=== PATIENT | male | born 1955 | race Caucasian/White ===

== ENCOUNTER 2022-12-24 18:52 | Inpatient (IN) ==
--- NOTE | 2022-12-24 19:14 | Emergency Department Note ---
History of Present Illness General Chief complaint: Shortness of Breath/Dyspnea Time Seen by Provider: 12/24/22 18:54 History of Present Illness 67-year-old male presents emergency department complaint of shortness of breath that been ongoing since April. Patient recently was at [facility] for shortness of breath. He is a very poor historian he called hussain for trasnport as he states he was short of breath. Patient states he hyperventilates at times. Patient denies any cough cold congestion denies chest pain. Patient was told that he has blockages in the past but he does not state specifically where those blockages are in fact. Patient denies a fever. There are no other mitigating or alleviating factors Home Medications Medication Instructions Recorded Confirmed Type No Known Home Medications 12/24/22 12/24/22 History Allergies Allergy/AdvReac Type Severity Reaction Status Date / Time No Known Allergies Allergy Unverified 12/24/22 19:45 Past Med/Surg History Social History Smoking Status: Current every day smoker Tobacco Type: Cigarettes Feels Safe at Home: Yes Immunizations: Past medical history includes cardiac history Review of Systems A total of 10 systems reviewed and were otherwise negative Respiratory: + dyspnea Physical Exam Vital Signs Vital Signs - 24 hr 12/24/22 18:55 12/24/22 18:59 12/24/22 19:10 Temperature 36.8 C Temperature Source Oral Pulse Rate 99 H 98 H Respiratory Rate 22 Respiratory Effort / Characteristics Non-Labored Respiratory Depth Normal Normal Respiratory Pattern Regular Blood Pressure 134/92 Blood Pressure Mean 106 Pulse Oximetry 99 Oxygen Delivery Method Room Air Sepsis Recent Fever Within 48 Hours No Sepsis New/Unexplained Change in Mental Status No Sepsis Action Taken by Nursing No Action Required 12/24/22 19:13 12/24/22 19:15 Temperature Temperature Source Pulse Rate 92 H Respiratory Rate 18 Respiratory Effort / Characteristics Respiratory Depth Respiratory Pattern Blood Pressure Blood Pressure Mean Pulse Oximetry 100 100 Oxygen Delivery Method Room Air Sepsis Recent Fever Within 48 Hours Sepsis New/Unexplained Change in Mental Status Sepsis Action Taken by Nursing GENERAL: Patient is awake alert in no acute distress patient is resting co mfortably and showing no signs of anxiety EYES: The conjunctivae are clear. The pupils are round and reactive. EARS, NOSE, MOUTH AND THROAT: The nose is without any evidence of any deformity. Mucous membranes are moist. Tongue is midline. NECK: The neck is nontender and supple. RESPIRATORY: Normal respiratory effort is noted there is no evidence of wheezing rhonchi or rales CARDIOVASCULAR: Regular rate and rhythm noted there no murmurs rubs or gallops normal S1 normal S2. GASTROINTESTINAL: The abdomen is soft. Abdomen is nontender. BACK: No midline tenderness or or step-off noted range of motion in flexion extension as well as rotation no signs of muscle spasm noted MUSCULOSKELETAL/EXTREMITIES: There is no evidence of gross deformity full range of motion is noted in the hips and shoulders. SKIN: There is no obvious evidence of any rash. There are no petechiae, pallor or cyanosis noted. NEUROLOGIC: Patient is awake alert and oriented x3 strength is symmetric Course Reevaluation(s) Reevaluation #1: Patient is resting in no distress on repeat examination. Patient has no current chest pain not short of breath. Time: 20:37 Consultations Consultation #1: [facility] Time: 20:37 Medical Decision Making Medical Records Attestation: I reviewed the patient's medical records. Home Medications Current Medication List: was personally reviewed by me Laboratory Data Attestation: I reviewed the patient's lab results. Patient has an elevated BNP and an elevated troponin 12/24/22 19:00 12/24/22 19:00 Lab Results 12/24/22 12/24/22 12/24/22 Range/Units 19:00 19:00 19:00 WBC 10.20 (4.8-10.8) K/ul RBC 5.69 (4.70-6.10) M/uL Hgb 17.2 (14.0-18.0) g/dl Hct 51.4 (42.0-52.0) % MCV 90.3 (80.0-100.0) fL MCH 30.2 (25.0-34.0) pg MCHC 33.5 (32.0-36.0) g/dL RDW Std Deviation 52.9 H (36.4-46.3) fL RDW Coeff of Samia 17.1 H (11.5-14.5) % Plt Count 113 L (130-400) K/uL MPV 12.0 (9.4-12.4) fL Immature Gran % (Auto) 0.4 % Neut % (Auto) 81.0 % Lymph % (Auto) 9.8 % [place] % (Auto) 8.7 % Eos % (Auto) 0.0 % Baso % (Auto) 0.1 % Neut # (Auto) 8.26 H (1.40-6.50) K/uL Lymph # (Auto) 1.00 L (1.2-3.4) K/uL [place] # (Auto) 0.89 H (0.11-0.59) K/uL Eos # (Auto) 0.00 (0-0.50) K/uL Baso # (Auto) 0.01 (0-0.2) K/uL Immature Gran # (Auto) 0.04 (0.01-0.20) K/uL Sodium 137 (136-145) mmol/L Potassium 4.9 (3.5-5.1) mmol/L Chloride 105 (98-107) mmol/L Carbon Dioxide 21 (21-32) mmol/L Anion Gap 11 (3-11) BUN 38 H (6-23) mg/dl Creatinine 1.14 (0.6-1.4) mg/dl Est Cr Clr Drug Dosing 75.1 ml/min Est GFR ( Amer) 77.8 ml/min Est GFR (Non-Af Amer) 67.1 ml/min BUN/Creatinine Ratio 33.3 H (10-20) Glucose 95 (70-99(Fasting)) mg/dl Calcium 9.0 (8.6-10.3) mg/dl Total Bilirubin 3.8 H (0.2-1.0) mg/dl AST 96 H (13-39) U/L ALT 213 H (7-52) U/L Alkaline Phosphatase 76 (34-104) U/L Troponin I High Sens 100.2 H* (0-20) pg/ml B-Natriuretic Peptide 3414 H (0-100) pg/ml Total Protein 6.5 (6.0-8.3) gm/dl Albumin 3.8 (3.4-5.0) gm/dl Globulin 2.7 (2.5-4.0) gm/dl Albumin/Globulin Ratio 1.4 (0.9-2) Lipase 56 (11-82) U/L Imaging Data Attestation: I personally reviewed and interpreted this imaging study as follows: My Impression: Chest x-ray interpreted by me cardiomegaly Radiologist's Impression: Chest X-Ray 12/24/22 18:58 XR chest 1V portable CLINICAL HISTORY: Chest pain, nonspecific TECHNIQUE: Single frontal radiograph of the chest was obtained. Comparison: None available at the time of this dictation. FINDINGS: No lines and tubes are seen. Cardiomegaly is noted. The lungs are clear. No evidence of pleural effusion or pneumothorax. IMPRESSION: No acute chest disease. ACT 112: Negative or not required by law. Electronically signed by: Dickson Carrero M.D. 12/24/2022 8:26 PM ECG Data Attestation: I personally reviewed and interpreted this ECG as follows: Additional Comments: EKG interpreted by me normal sinus rhythm left ventricular hypertrophy nons pecific T wave abnormality with T wave inversions laterally no obvious ST segment elevation or depression, rate is 100 Telemetry was ordered by me, interpreted as normal sinus rhythm rate of 99 MDM Narrative Medical decision making differential diagnosis includes CHF, anxiety, cardiac event, electrolyte abnormality, cardiac dysrhythmia, pneumonia, COPD Plan is to check labs, EKG, chest x-ray Bedside report was given to me by the HUSSAIN hogshead mat inspector Patient's heart score is a 4 Patient will be admitted for an elevated BNP and troponin he has no current chest pain, started on aspirin and Lasix. Do not suspect the patient have thoracic aortic dissection or pulmonary embolism at this time Impression & Plan CHF (congestive heart failure), Elevated troponin Discharge Plan Visit Data Chief Complaint: Shortness of Breath/Dyspnea ED Provider: Martir Salgado Discharge Problem: CHF (congestive heart failure), Elevated troponin Patient Disposition: Admitted As Inpatient Forms Stand Alone Forms: My [facility] [employer] Prescriptions Prescriptions: No Action No Known Home Medications Referrals Referrals: Jason Sapp MD [Primary Care Provider] -
[2022-12-24 19:17] LABS: Basophils # (auto) 0.01 K/uL (0-0.2); Basophils % (auto) 0.1 %; Hematocrit (blood only) 51.4 % (42.0-52.0); Hemoglobin 17.2 g/dl (14.0-18.0); Immature Granulocytes # (auto) 0.04 K/uL (0.01-0.20); Immature Granulocytes % (auto) 0.4 %; Lymphocytes % (auto) 9.8 %; Mean Corpuscular Hemoglobin 30.2 pg (25.0-34.0); Mean Corpuscular Hgb Conc 33.5 g/dL (32.0-36.0); Mean Corpuscular Volume 90.3 fL (80.0-100.0); Monocytes # (auto) 0.89 K/uL (0.11-0.59); Monocytes % (auto) 8.7 %; Neutrophils # (auto) 8.26 K/uL (1.40-6.50); Platelet Count 113 K/uL (130-400); RDW Coefficient of Variation 17.1 % (11.5-14.5); RDW Standard Deviation 52.9 fL (36.4-46.3); Red Blood Count 5.69 M/uL (4.70-6.10)
[2022-12-24 19:34] LABS: Albumin Globulin Ratio 1.4 (0.9-2); Albumin Level 3.8 gm/dl (3.4-5.0); BUN Creatinine Ratio 33.3 (10-20); Bilirubin,Total 3.8 mg/dl (0.2-1.0); Creatinine Clr Calc Pharmacy 75.1 ml/min; Est GFR (African American) 77.8 ml/min; Est GFR (Non-African American) 67.1 ml/min; Globulin 2.7 gm/dl (2.5-4.0); Potassium 4.9 mmol/L (3.5-5.1); Total Protein 6.5 gm/dl (6.0-8.3)
[2022-12-24] MEDS ORDERED: FUROSEMIDE 40 MG/4 ML VIAL IV ONE (19:45)
[2022-12-24] MEDS ORDERED: ASPIRIN CHEW 324 MG PO STA (19:50)
[2022-12-24 19:51] LABS: Troponin I High Sensitivity 100.2 pg/ml (0-20)
--- NOTE | 2022-12-24 20:28 | XRay Report ---
XR chest 1V portable CLINICAL HISTORY: Chest pain, nonspecific TECHNIQUE: Single frontal radiograph of the chest was obtained. Comparison: None available at the time of this dictation. FINDINGS: No lines and tubes are seen. Cardiomegaly is noted. The lungs are clear. No evidence of pleural effus ion or pneumothorax. IMPRESSION: No acute chest disease. ACT 112: Negative or not required by law. Electronically signed by: Dickson Carrero M.D. 12/24/2022 8:26 PM
[2022-12-24] MEDS ORDERED: ACETAMINOPHEN 1,000 MG/100 ML VIAL IV STA (20:37)
[2022-12-24] MEDS ORDERED: LORazepam 2 MG/1 ML VIAL IV STA (20:37)
--- NOTE | 2022-12-24 20:46 | History & Physical Report ---
Date of Service December 24, 2022 Assessment & Plan (1) Shortness of breath: Plan: 67yo male presents with progressive shortness of breath over the last month. He has had adequate oxygenation on room air. CXR with cardiomegaly but otherwise no acute process to explain his SOB. Lung exam with bibasilar crackles - no wheezing at time of exam. Marked elevation of BNP as well as troponin. Patient with no complaint of chest pain. Patient with some cardiac history - uncertain of the details, no records and patient is not clear. Sounds as though he may have had a catheterization with thrombectomy. He is not sure if he had a heart attack. He denies known history of heart failure or arrhythmia. No stents in place per patient. Suspect CHF -Admit to PCU, continuous cardiac monitoring -Trend troponin -Patient given Lasix 40mg IV in the ER - monitor response. -Continue Lasix 40mg IV BID -Daily weights and I/O monitoring -Cardiology consultation appreciated -Check 2D echocardiogram -Obtain records from [facility] and [facility] if able -Check Utox and EtOH levels (2) Elevated troponin: Plan: Patient with elevated troponin of 100.2 as well as BNP of 3414. Patient denies chest pain. He does have some EKG findings - borderline QRS, prolonged QTc, LAE, LVH and lateral T-wave changes. -Telemetry monitoring -Trend troponin -EKG with chest pain -If repeat troponin is markedly elevated will consider heparin gtt, although do not strongly suspect ACS -ASA 324mg po given in the ER. Will continue 81mg po daily until more information about patient's cardiac history can be obtained. (3) Abdominal pain: Plan: Patient complaining of abdominal pain. CT obtained and shows no acute reason for the pain - diverticulosis without diverticulitis, non-obstructing renal stones. No leukocytosis. No anion gap acidosis. Lipase is normal. He does have abnormal LFTs AST=96, OIJ=126 and TBili of 3.8. Liver, gallbladder and ducts are unremarkable on CT. ?Congestive hepatopathy vs other -Check INR -Repeat LFTs in AM F/E/N - Diuresis with Lasix, electrolytes WNL, AHA diet as tolerated Ppx - Lovenox Code - Full per discussion with patient Dispo - Admit to PCU History of Present Illness Chief Complaint: shortness of breath, abdominal pain Primary Care Provider: Jason Sapp MD Ivan Maria is a 67yo male with no reported medical history or daily medications - does not follow routinely with a doctor. He does not clearly provide history - history obtained through discussion with patient and ER staff. Patient reports ongoing abdominal discomfort and shortness of breath since April. He was seen at [facility] in the past for this same complaint. Per his description, it sounds as if he was placed on NIPPV (he reports wearing a full face mask and having air pressure blown at him). He was sent to [facility] and sounds that he had a cardiac catheterization with possible thrombectomy. Patient reports that "they took out all the clots". He does not report having stents. He does not report following with a [facility] or a Primary Care physician. Today patient developed severe mid abdominal pain with nausea and worsening shortness of breath. He reports his shortness of breath has been progressing for the last month. He denies chest pain, palpitations, cough, dizziness, syncope. He denies vomiting, diarrhea or constipation. He denies urinary complaints. Denies edema, orthopnea or weight gain. In the ER he is afebrile, tachycardic, blood pressure stable. He did have a 6 beat run of monomorphic ventricular tachycardia which was as ymptomatic. ER Course: Ativan 0.5mg Tylenol 1gm IV Lasix 40mg IV ASA 324mg Allergies Allergy/AdvReac Type Severity Reaction Status Date / Time No Known Allergies Allergy Unverified 12/24/22 19:45 Home Medications Medication Instructions Recorded Confirmed Type No Known Home Medications 12/24/22 12/24/22 History Past Med/Surg History Surgical History (Updated 12/25/22 @ 00:15 by Serene Sanford DO) No significant past surgical history Family History (Updated 12/25/22 @ 00:16 by Serene Sanford DO) Other No significant family history Social History (Updated 12/25/22 @ 00:16 by Serene Sanford DO) Smoking Status: Current every day smoker Tobacco Type: Cigarettes Hx Alcohol Use: No Hx Substance Use: No Feels Safe at Home: Yes Review of Systems Review of Systems: All systems reviewed & are unremarkable except as noted in HPI & below Physical Exam Physical Exam: General: patient disheveled in appearance, holding his abdomen and complaining of pain, oriented x 3 Skin: warm, dry, intact, no rashes or lesions HEENT: NC/AT, PERRL, EOMI, anicteric sclera, conjunctiva without injection, external ear normal to inspection and nontender, nares patent, moist mucus membranes, dentition intact, no oropharyngeal lesions, neck supple, trachea midline, no LAD, no thyromegaly, +JVD noted on right to above earlobe Heart: +S1/S2, regular, no m/r/g. Extremities cool to touch but with palpable pulses. +JVD noted. Lungs: equal air entry bilaterally, crackles in bilateral bases, no rhonchi/wheezing Abd: +BS, soft, tender in epigastric region and lower abdomen with no rebound/guarding/peritonitis, no organomegaly or ascites. Bruising present on left flank. Ext: slightly cool to touch, 2+ pulses in UE/LE bilaterally, no clubbing/cyanosis or edema Neuro: nonfocal, patient AA&O x 3, speech intact, no facial droop, moving all extremities on command with equal strength 5/5 Results & Data Results & Data Vital Signs (Past 12 Hours) Vital Signs Temp Pulse Resp BP Pulse Ox O2 Del Method 12/24/22 20:39 127/96 12/24/22 20:39 97 H 19 88 L 12/24/22 20:30 94 H 28 H 83 L 12/24/22 20:00 97 H 7 L 98 12/24/22 19:30 97 H 18 96 12/24/22 19:00 101 H 24 12/24/22 19:15 92 H 18 100 12/24/22 19:13 100 Room Air 12/24/22 19:10 Room Air 12/24/22 18:59 98 H 12/24/22 18:55 36.8 C 99 H 22 134/92 99 Laboratory Results Laboratory Results WBC 10.20 K/ul (4.8-10.8) 12/24/22 19:00 RBC 5.69 M/uL (4.70-6.10) 12/24/22 19:00 Hgb 17.2 g/dl (14.0-18.0) 12/24/22 19:00 Hct 51.4 % (42.0-52.0) 12/24/22 19:00 MCV 90.3 fL (80.0-100.0) 12/24/22 19:00 MCH 30.2 pg (25.0-34.0) 12/24/22 19:00 MCHC 33.5 g/dL (32.0-36.0) 12/24/22 19:00 RDW Std Deviation 52.9 fL (36.4-46.3) H 12/24/22 19:00 RDW Coeff of Samia 17.1 % (11.5-14.5) H 12/24/22 19:00 Plt Count 113 K/uL (130-400) L 12/24/22 19:00 MPV 12.0 fL (9.4-12.4) 12/24/22 19:00 Immature Gran % (Auto) 0.4 % 12/24/22 19:00 Neut % (Auto) 81.0 % 12/24/22 19:00 Lymph % (Auto) 9.8 % 12/24/22 19:00 [place] % (Auto) 8.7 % 12/24/22 19:00 Eos % (Auto) 0.0 % 12/24/22 19:00 Baso % (Auto) 0.1 % 12/24/22 19:00 Neut # (Auto) 8.26 K/uL (1.40-6.50) H 12/24/22 19:00 Lymph # (Auto) 1.00 K/uL (1.2-3.4) L 12/24/22 19:00 [place] # (Auto) 0.89 K/uL (0.11-0.59) H 12/24/22 19:00 Eos # (Auto) 0.00 K/uL (0-0.50) 12/24/22 19:00 Baso # (Auto) 0.01 K/uL (0-0.2) 12/24/22 19:00 Immature Gran # (Auto) 0.04 K/uL (0.01-0.20) 12/24/22 19:00 Sodium 137 mmol/L (136-145) 12/24/22 19:00 Potassium 4.9 mmol/L (3.5-5.1) 12/24/22 19:00 Chloride 105 mmol/L (98-107) 12/24/22 19:00 Carbon Dioxide 21 mmol/L (21-32) 12/24/22 19:00 Anion Gap 11 (3-11) 12/24/22 19:00 BUN 38 mg/dl (6-23) H 12/24/22 19:00 Creatinine 1.14 mg/dl (0.6-1.4) 12/24/22 19:00 Est Cr Clr Drug Dosing 75.1 ml/min 12/24/22 19:00 Est GFR ( Amer) 77.8 ml/min 12/24/22 19:00 Est GFR (Non-Af Amer) 67.1 ml/min 12/24/22 19:00 BUN/Creatinine Ratio 33.3 (10-20) H 12/24/22 19:00 Glucose 95 mg/dl (70-99(Fasting)) 12/24/22 19:00 Calcium 9.0 mg/dl (8.6-10.3) 12/24/22 19:00 Total Bilirubin 3.8 mg/dl (0.2-1.0) H 12/24/22 19:00 AST 96 U/L (13-39) H 12/24/22 19:00 ALT 213 U/L (7-52) H 12/24/22 19:00 Alkaline Phosphatase 76 U/L (34-104) 12/24/22 19:00 Troponin I High Sens 100.2 pg/ml (0-20) H* 12/24/22 19:00 B-Natriuretic Peptide 3414 pg/ml (0-100) H 12/24/22 19:00 Total Protein 6.5 gm/dl (6.0-8.3) 12/24/22 19:00 Albumin 3.8 gm/dl (3.4-5.0) 12/24/22 19:00 Globulin 2.7 gm/dl (2.5-4.0) 12/24/22 19:00 Albumin/Globulin Ratio 1.4 (0.9-2) 12/24/22 19:00 Lipase 56 U/L (11-82) 12/24/22 19:00 SARS-CoV-2, RNA, NAAT NEGATIVE (NEGATIVE) 12/24/22 20:45 Impressions Chest X-Ray 12/24/22 18:58 XR chest 1V portable CLINICAL HISTORY: Chest pain, nonspecific TECHNIQUE: Single frontal radiograph of the chest was obtained. Comparison: None available at the time of this dictation. FINDINGS: No lines and tubes are seen. Cardiomegaly is noted. The lungs are clear. No evidence of pleural effusion or pneumothorax. IMPRESSION: No acute chest disease. ACT 112: Negative or not required by law. Electronically signed by: Dickson Carrero M.D. 12/24/2022 8:26 PM Abdomen/Pelvis CT 12/24/22 20:37 Exam(s): CT ABDOMEN + PELVIS Without Contrast EXAM: CT Abdomen and Pelvis Without Intravenous Contrast CLINICAL HISTORY: Reason for exam: abdominal pain. TECHNIQUE: Axial computed tomography images of the abdomen and pelvis without intravenous contrast. CTDI is 21 mGy and DLP is 986.25 mGy-cm. Automated exposure control was utilized for the study. A dose lowering technique was utilized adhering to the principles of ALARA. COMPARISON: No relevant prior studies available. FINDINGS: Lung bases: Scarring/atelectasis at the RIGHT lung base. Heart: Cardiomegaly. ABDOMEN: Liver: Unremarkable. No focal hepatic lesion. Gallbladder and bile ducts: Unremarkable. No calcified stones. No ductal dilation. Pancreas: Unremarkable. No ductal dilation. Spleen: Unremarkable. No splenomegaly. Adrenals: Unremarkable. No mass. Kidneys and ureters: Bilateral nonobstructing renal calculi measuring up to 4 mm in the RIGHT lower pole. No obstructive uropathy. Bilateral renal cysts measuring up to 3.7 x 4.7 cm in the RIGHT lower pole. Stomach and bowel: Diverticulosis, without acute diverticulitis. No small bowel obstruction. No free intraperitoneal air. PELVIS: Appendix: Normal appendix. Bladder: Unremarkable. No stones. Reproductive: Unremarkable as visualized. ABDOMEN and PELVIS: Intraperitoneal space: Unremarkable. No free air. No significant fluid collection. Bones/joints: Degenerative changes of the spine. No acute fracture. No dislocation. Soft tissues: Unremarkable. Vasculature: Atherosclerotic changes of the aorta. No abdominal aortic aneurysm. Lymph nodes: Unremarkable. No enlarged lymph nodes. IMPRESSION: 1. Normal appendix. 2. Bilateral nonobstructing renal calculi measuring up to 4 mm in the RIGHT lower pole. No obstructive uropathy. 3. Diverticulosis, without acute diverticulitis. No small bowel obstruction. No free intraperitoneal air. Electronically signed by: Lionel Molina MD 12/24/22 21:25 PM ECG Additional Comments: EKG with NSR at 100bpm, normal axis, OA=123, QRS prolonged at 132ms, QTc prolonged at 521. Left atrial enlargement, TW abnormality in V5-V6. No prior study for comparison PG Care Time/CCT Total # of Minutes Spent Total Time Spent with Patient: Total time spent is greater than 50% in coordination of care (as documented) at patient's floor/unit and/or counseling patient: Coding Level of Care Code 69459 INT INP/OBS CARE 3/75MIN Diagnoses Shortness of breath R06.02 Elevated troponin R77.8 Abdominal pain R10.9
--- NOTE | 2022-12-24 21:26 | CT Scan Report ---
Exam(s): CT ABDOMEN + PELVIS Without Contrast EXAM: CT Abdomen and Pelvis Without Intravenous Contrast CLINICAL HISTORY: Reason for exam: abdominal pain. TECHNIQUE: Axial computed tomography images of the abdomen and pelvis without intravenous contrast. CTDI is 21 mGy and DLP is 986.25 mGy-cm. Automated exposure control was utilized for the study. A dose lowering technique was utilized adhering to the principles of ALARA. COMPARISON: No relevant prior studies available. FINDINGS: Lung bases: Scarring/atelectasis at the RIGHT lung base. Heart: Cardiomegaly. ABDOMEN: Liver: Unremarkable. No focal hepatic lesion. Gallbladder and bile ducts: Unremarkable. No calcified stones. No ductal dilation. Pancreas: Unremarkable. No ductal dilation. Spleen: Unremarkable. No splenomegaly. Adrenals: Unremarkable. No mass. Kidneys and ureters: Bilateral nonobstructing renal calculi measuring up to 4 mm in the RIGHT lower pole. No obstructive uropathy. Bilateral renal cysts measuring up to 3.7 x 4.7 cm in the RIGHT lower pole. Stomach and bowel: Diverticulosis, without acute diverticulitis. No small bowel obstruction. No free intraperitoneal air. PELVIS: Appendix: Normal appendix. Bladder: Unremarkable. No stones. Reproductive: Unremarkable as visualized. ABDOMEN and PELVIS: Intraperitoneal space: Unremarkable. No free air. No significant fluid collection. Bones/joints: Degenerative changes of the spine. No acute fracture. No dislocation. Soft tissues: Unremarkable. Vasculature: Atherosclerotic changes of the aorta. No abdominal aortic aneurysm. Lymph nodes: Unremarkable. No enlarged lymph nodes. IMPRESSION: 1. Normal appendix. 2. Bilateral nonobstructing renal calculi measuring up to 4 mm in the RIGHT lower pole. No obstructive uropathy. 3. Diverticulosis, without acute diverticulitis. No small bowel obstruction. No free intraperitoneal air. Electronically signed by: Lionel Molina MD 12/24/22 21:25 PM
[2022-12-25 00:36] LABS: Magnesium 2.3 mg/dl (1.7-2.4); Phosphorus 3.3 mg/dl (2.5-4.9)
[2022-12-25] MEDS ORDERED: ONDANSETRON INJ 2 MG/ML 2 ML VIAL IV PRN (02:03)
[2022-12-25] MEDS ORDERED: DOCUSATE SODIUM 100 MG CAP PO PRN (02:03)
[2022-12-25 02:28] LABS: Appearance Urine Clear (Clear); Bacteria Urine Automated Negative (Negative); Bilirubin Urine Negative (Negative); Blood Urine Trace (Negative); Cast Urine Automated 0 /lpf (0-5); Color Urine Yellow; Epithelial Cell Urine Auto 0-5 /lpf (0-5); Glucose Urine UA Negative (Negative); Ketones Urine Negative (Negative); Leukocyte Esterase Urine Negative (Negative); Nitrite Urine Negative (Negative); Protein Urine Negative (Negative); RBC Urine Automated 0-4 /hpf (0-4); Specific Gravity Urine 1.009 (1.000-1.030); Urobilinogen Urine Negative (Negative); WBC Urine Automated 0 /hpf (0-5)
[2022-12-25 03:01] LABS: Amphetamines+Metham, Urine Neg (Neg); Barbiturates, Urine Neg (Neg); Benzodiazepine, Urine Neg (Neg); Cocaine, Urine Neg (Neg); MDMA (Ecstacy), Urine Neg (Neg); Methadone, Urine Neg (Neg); Opiate, Urine Neg (Neg); Phencyclidine, Urine Neg (Neg)
[2022-12-25 03:15] LABS: Hemoglobin 17.2 g/dl (14.0-18.0); Mean Corpuscular Hemoglobin 30.4 pg (25.0-34.0); Mean Corpuscular Hgb Conc 33.7 g/dL (32.0-36.0); Mean Corpuscular Volume 90.3 fL (80.0-100.0); Platelet Count 110 K/uL (130-400); RDW Coefficient of Variation 17.5 % (11.5-14.5); RDW Standard Deviation 52.6 fL (36.4-46.3); Red Blood Count 5.65 M/uL (4.70-6.10); White Blood Count 9.31 K/ul (4.8-10.8)
[2022-12-25 03:26] LABS: Albumin Level 3.9 gm/dl (3.4-5.0); BUN Creatinine Ratio 33.6 (10-20); Bilirubin Direct 1.6 mg/dl (0-0.2); Bilirubin,Total 3.8 mg/dl (0.2-1.0); Calcium 8.9 mg/dl (8.6-10.3); Est GFR (African American) 73.9 ml/min; Est GFR (Non-African American) 63.7 ml/min; Potassium 4.1 mmol/L (3.5-5.1); Total Protein 6.7 gm/dl (6.0-8.3)
[2022-12-25 03:40] LABS: INR 1.5 (0.9-1.1); Prothrombin Time 16.1 Seconds (9.0-12.0)
[2022-12-25] MEDS: ASPIRIN 81 MG ECTAB PO SCH (08:41)
[2022-12-25] MEDS: FUROSEMIDE 40 MG/4 ML VIAL IV SCH ×2 (08:41→18:22)
[2022-12-25] MEDS ORDERED: ENOXAPARIN INJ 40 MG/0.4 ML SYR SQ SCH (09:00)
--- NOTE | 2022-12-25 10:00 | Cardiology Consultation ---
Date of Consultation December 25, 2022 Assessment & Plan (1) HFrEF (heart failure with reduced ejection fraction): (2) Cardiomyopathy: (3) LV (left ventricular) mural thrombus: Mr. Maria is a 67 year old male and a very poor historian with a history of a Cardiomyopathy with LV Thrombus s/p Cardiac Catheterization and Thrombectomy [facility] (he doesn't recall when this was done), Presumed CAD (details unknown), Tobacco Use, Substance Abuse, and Nephrolithiasis who presented acutely to [facility] on 12/24/22 with Acute on Chronic Systolic CHF. He presented SOB, Orthopnea, and PND. He initially noted the SOB/BISHOP in April 2022 and this has been getting worse since approximately July 2022 when he developed SOB at rest, orthopnea, and PND. He also complained of abdominal pain. When asked about chest pain, he denies any chest pain leading up to this hospitalization. Patient does not describe angina pectoris, nor has he had any symptoms suggestive of a hemodynamically significant dysrhythmia. Patient was on anticoagulation for his LV thrombus in the past as well as other cardiac medications which he does not recall -- nonetheless he stopped them at some point for no specific reason. When I ask him directly, he states that he is willing to take medications for his heart. Fortunately, the patient has not had any symptoms suggestive IV of stroke or thromboembolic event. Evaluation in the ER showed an elevated BNP of 3414 pg/mL. Initial high sensitivity Troponin I was 100.2 pg/mL, with subsequent values being 11.4 pg/mL and 96.0 pg/mL. LFT's are abnormal and consistent with hepatic congestion. CXR 12/24/22 showed cardiomegaly but no acute processes or pulmonary edema. EKG shows NSR at 100 bpm with left atrial enlargement, LVH with QRS widening, T-wave abnormality, consider lateral ischemia and prolonged QT interval of 521 msec. We reviewed his Echocardiogram in detail. LVEF is 15%-20% with severe global hypokinesis and a large apical thrombus. We discussed various causes for a weak heart muscle and we discussed the possible diagnosis of CAD, idiopathic ca rdiomyopathy vs ischemic cardiomyopathy. This does not appear to be in acute ischemic event although his troponin I is elevated, this is most likely demand ischemia related to decompensated CHF. We also discussed ventricular tachycardia which he has had a couple of nonsustained episodes of and we discussed how this can be related to reduced LV systolic function. Recommend the followin. Obtain cardiac catheterization report and cardiology records from [facility]. 2. Cardiac Catheterization/Coronary Angiography tomorrow morning. 3. NPO after midnight except for medications and ice chips. 4. Continue Aspirin 81 mg daily. 5. Continue Lasix 40 mg IV b.i.d. until reaches euvolemic state, then convert to oral Lasix. 6. Begin Coreg 3.125 mg b.i.d.. 7. Begin Lisinopril 5 mg daily - if BP allows and insurance covers it, we will convert to Entresto as an outpatient. 8. Begin Spironolactone 25 mg daily. 9. 2 gram low sodium diet. 10. Monitor I&O's, daily body weights. 11. Stop Lovenox. 12. Begin Heparin Drip without a bolus. 13. Convert to Eliquis or Xarelto prior to discharge. (4) Elevated troponin: Initial high sensitivity Troponin I was 100.2 pg/mL, with subsequent values being 11.4 pg/mL and 96.0 pg/mL. -- It does not sound as though he had an acute ischemic event, this is most likely result of demand ischemia related to decompensated CHF. -- If any evidence of CAD on Cardiac Catheterization he will be started on a statin medication. (5) Long QT interval: Corrected QT interval is 521 msec. -- Cautious use of any medications that can prolong this even further. (6) Non-sustained ventricular tachycardia: He has had 2 episodes of non-sustained V-Tach on monitor. -- Monitor daily labs/electrolytes. -- Begin Coreg 3.125 mg b.i.d., titrate as BP and HR allow. -- Guideline directed medical therapy for his cardiomyopathy. -- If EF remains persistently low after 3 to 6 month on maximum medical therapy he would be a candidate for an AICD. We will continue to follow closely while hospitalized and following discharge. Thank you for asking us to see this patient in consultation. History of Present Illness Reason for Consultation: -- Heart Failure. -- Elevated high sensitivity Troponin I. Requesting Physician: Omar Haines Attending Physician: Cameron Colmenares MD History of Present Illness Mr. Maria is a 67 year old male and a very poor historian with a history of a Cardiomyopathy with LV Thrombus s/p Cardiac Catheterization and Thrombectomy [facility] (he doesn't recall when this was done), Presumed CAD (details unknown), Tobacco Use, Substance Abuse, and Nephrolithiasis who presented acutely to [facility] ER on 12/24/22 complaining of SOB, Orthopnea, and PND. He initially noted the SOB/BISHOP in April 2022 and this has been getting worse since approximately July 2022 when he developed SOB at rest, orthopnea, and PND. He also complained of abdominal pain. When asked about chest pain, he denies any chest pain leading up to this hospitalization. He specifically denies any exertional chest pain, heaviness, tightness, pressure, or discomfort. He denies any exertional neck, jaw, back, or arm pain. He denies any palpitations, syncope, or near syncope. It sounds as though he was on anticoagulation for his LV thrombus in the past as well as other cardiac medications which he does not recall -- nonetheless he stopped them at some point for no specific reason. When I ask him directly, he states that he is willing to take medications for his heart. Evaluation in the ER showed an elevated BNP of 3414 pg/mL. Initial high sensitivity Troponin I was 100.2 pg/mL, with subsequent values being 11.4 pg/mL and 96.0 pg/mL. LFT's are abnormal and consistent with hepatic congestion. CXR 12/24/22 showed cardiomegaly but no acute processes or pulmonary edema. EKG 12/24/22 shows NSR at 100 bpm with left atrial enlargement, LVH with QRS wideni ng, T-wave abnormality, consider lateral ischemia and prolonged QT interval of 521 msec. Echocardiogram 12/25/2022 shows the followin. LV systolic function is severely reduced. 2. LV is severely dilated with severe global hypokinesis of left ventricle. 3. LVEF 15% to 20%. 4. Large apical thrombus 5. Moderate mitral regurgitation. 6. No prior studies available for comparison. I have requested his cardiac catheterization and any cardiology reports from [facility]. Allergies Allergy/AdvReac Type Severity Reaction Status Date / Time No Known Allergies Allergy Unverified 12/24/22 19:45 Home Medications Medication Instructions Recorded Confirmed Type No Known Home Medications 12/24/22 12/24/22 History Patient History Surgical History No significant past surgical history Family History Other No significant family history Social History Smoking Status: Current every day smoker Tobacco Type: Cigarettes Do You Dip or Chew Tobacco: No; Hx Alcohol Use: Yes Alcohol type: beer Hx Substance Use: Yes Last Used Substance: Days (ago) Last Used Substance Other:: 12/09/22 Preferred Language: Trinidadian Communication Ability: Effective Molding Utility Worker Required: No Beliefs That Will Affect Care: None Current Living Situation: Alone Other Information That Helps Us Care for You: No Feels Safe at Home: Yes Safety Concerns: Feels Safe At This Time Assistive Devices: Cane Review of Systems Review of Systems: -- He has had leg edema with the above symptoms. -- Abdominal bloating. -- 10 point ROS completed and is negative with the exception of what is mention ed in the HPI. Physical Exam Physical Exam: GENERAL: Patient in no acute distress. HEENT: Head is atraumatic, normocephalic. EOM's intact. Facies symmetric. No perioral cyanosis. NECK: No JVD. JVP is elevated. +HJR. Carotid upstrokes are + 2 bilaterally without bruits. CHEST/LUNGS: Diminished breath sounds in bilateral bases, no wheezes or rales CVS: S1 and S2 are regular with an S3 gallop. No murmurs or rubs. PMI is laterally displaced. No lifts, heaves, or thrills. No abdominal aortic or renal bruits. ABDOMINAL EXAM: Bowel sounds are present. No masses, organomegaly, or tenderness. EXTREMITIES: No clubbing or cyanosis. No edema. Intact radial pulses bilaterally. NEUROLOGIC EXAM: Patient is awake and interactive. Speech is clear. VISUAL AND STOCK ASSOCIATE: -- Predominantly sinus rhythm with episodes of nonsustained V-tach. Results & Data Vital Signs (Past 12 Hours) Vital Signs Temp Pulse Pulse Resp BP BP Pulse Ox 12/25/22 07:59 37.0 C 89 18 109/69 95 12/25/22 04:06 36.2 C L 98 H 20 110/73 90 12/25/22 03:35 71 24 121/88 96 12/25/22 03:10 96 H 12/25/22 02:30 12/25/22 01:30 93 H 12 117/90 86 L 12/25/22 01:00 95 H 16 108/72 94 12/25/22 00:30 100 H 32 H 110/67 92 12/25/22 00:00 93 H 12 106/73 98 12/24/22 23:55 120 H 12/24/22 23:30 92 H 16 122/86 100 12/24/22 23:01 97 H 40 H 104/90 98 12/24/22 23:00 95 H 8 L 95 12/24/22 22:31 97 H 22 117/71 100 12/24/22 22:30 93 H 16 12/24/22 22:58 94 H 12/24/22 22:01 123/69 99 12/24/22 22:01 98 H 23 123/69 99 12/24/22 22:00 94 H 22 99 O2 Del Method 12/25/22 07:59 Room Air 12/25/22 04:06 Room Air 12/25/22 03:35 Room Air 12/25/22 03:10 12/25/22 02:30 Room Air 12/25/22 01:30 12/25/22 01:00 12/25/22 00:30 12/25/22 00:00 12/24/22 23:55 12/24/22 23:30 12/24/22 23:01 12/24/22 23:00 12/24/22 22:31 12/24/22 22:30 12/24/22 22:58 12/24/22 22:01 12/24/22 22:01 12/24/22 22:00 Laboratory Results Laboratory Results - last 24 hr 12/24/22 12/24/22 12/24/22 19:00 19:00 19:00 WBC 10.20 RBC 5.69 Hgb 17.2 Hct 51.4 MCV 90.3 MCH 30.2 MCHC 33.5 RDW Std Deviation 52.9 H RDW Coeff of Samia 17.1 H Plt Count 113 L MPV 12.0 Immature Gran % (Auto) 0.4 Neut % (Auto) 81.0 Lymph % (Auto) 9.8 Irwin % (Auto) 8.7 Eos % (Auto) 0.0 Baso % (Auto) 0.1 Neut # (Auto) 8.26 H Lymph # (Auto) 1.00 L Irwin # (Auto) 0.89 H Eos # (Auto) 0.00 Baso # (Auto) 0.01 Immature Gran # (Auto) 0.04 PT INR Sodium 137 Potassium 4.9 Chloride 105 Carbon Dioxide 21 Anion Gap 11 BUN 38 H Creatinine 1.14 Est Cr Clr Drug Dosing 75.1 Est GFR ( Amer) 77.8 Est GFR (Non-Af Amer) 67.1 BUN/Creatinine Ratio 33.3 H Glucose 95 Calcium 9.0 Phosphorus 3.3 Magnesium 2.3 Total Bilirubin 3.8 H Direct Bilirubin AST 96 H ALT 213 H Alkaline Phosphatase 76 Troponin I High Sens 100.2 H* B-Natriuretic Peptide 3414 H Total Protein 6.5 Albumin 3.8 Globulin 2.7 Albumin/Globulin Ratio 1.4 Lipase 56 Urine Color Urine Appearance Urine pH Ur Specific [place] Urine Protein Urine Glucose (UA) Urine Ketones Urine Blood Urine Nitrite Urine Bilirubin Urine Urobilinogen Ur Leukocyte Esterase Urine WBC (Auto) Urine RBC (Auto) U Hyaline Cast (Auto) U Epithel Cells (Auto) Urine Bacteria (Auto) Urine Opiates Screen Ur Methadone, Qual Urine Barbiturates Ur Phencyclidine (PCP) U Amphetamin/Meth Scrn MDMA (Ecstasy) Screen U Benzodiazepines Scrn Ur Cocaine Metabolite U Marijuana (THC) Screen Ethyl Alcohol mg/dL SARS-CoV-2, RNA, NAAT 12/24/22 12/25/22 12/25/22 20:45 01:16 01:16 WBC RBC Hgb Hct MCV MCH MCHC RDW Std Deviation RDW Coeff of Samia Plt Count MPV Immature Gran % (Auto) Neut % (Auto) Lymph % (Auto) Irwin % (Auto) Eos % (Auto) Baso % (Auto) Neut # (Auto) Lymph # (Auto) Irwin # (Auto) Eos # (Auto) Baso # (Auto) Immature Gran # (Auto) PT INR Sodium Potassium Chloride Carbon Dioxide Anion Gap BUN Creatinine Est Cr Clr Drug Dosing Est GFR ( Amer) Est GFR (Non-Af Amer) BUN/Creatinine Ratio Glucose Calcium Phosphorus Magnesium Total Bilirubin Direct Bilirubin AST ALT Alkaline Phosphatase Troponin I High Sens B-Natriuretic Peptide Total Protein Albumin Globulin Albumin/Globulin Ratio Lipase Urine Color Yellow Urine Appearance Clear Urine pH 5.0 Ur Specific [place] 1.009 Urine Protein Negative Urine Glucose (UA) Negative Urine Ketones Negative Urine Blood Trace H Urine Nitrite Negative Urine Bilirubin Negative Urine Urobilinogen Negative Ur Leukocyte Esterase Negative Urine WBC (Auto) 0 Urine RBC (Auto) 0-4 U Hyaline Cast (Auto) 0 U Epithel Cells (Auto) 0-5 Urine Bacteria (Auto) Negative Urine Opiates Screen Neg Ur Methadone, Qual Neg Urine Barbiturates Neg Ur Phencyclidine (PCP) Neg U Amphetamin/Meth Scrn Neg MDMA (Ecstasy) Screen Neg U Benzodiazepines Scrn Neg Ur Cocaine Metabolite Neg U Marijuana (THC) Screen Neg Ethyl Alcohol mg/dL SARS-CoV-2, RNA, NAAT NEGATIVE 12/25/22 12/25/22 12/25/22 02:45 02:45 02:45 WBC 9.31 RBC 5.65 Hgb 17.2 Hct 51.0 MCV 90.3 MCH 30.4 MCHC 33.7 RDW Std Deviation 52.6 H RDW Coeff of Samia 17.5 H Plt Count 110 L MPV 12.0 Immature Gran % (Auto) Neut % (Auto) Lymph % (Auto) Irwin % (Auto) Eos % (Auto) Baso % (Auto) Neut # (Auto) Lymph # (Auto) Irwin # (Auto) Eos # (Auto) Baso # (Auto) Immature Gran # (Auto) PT INR Sodium Potassium Chloride Carbon Dioxide Anion Gap BUN Creatinine Est Cr Clr Drug Dosing Est GFR ( Amer) Est GFR (Non-Af Amer) BUN/Creatinine Ratio Glucose Calcium Phosphorus Magnesium Total Bilirubin Direct Bilirubin AST ALT Alkaline Phosphatase Troponin I High Sens 114.4 H* B-Natriuretic Peptide Total Protein Albumin Globulin Albumin/Globulin Ratio Lipase Urine Color Urine Appearance Urine pH Ur Specific [place] Urine Protein Urine Glucose (UA) Urine Ketones Urine Blood Urine Nitrite Urine Bilirubin Urine Urobilinogen Ur Leukocyte Esterase Urine WBC (Auto) Urine RBC (Auto) U Hyaline Cast (Auto) U Epithel Cells (Auto) Urine Bacteria (Auto) Urine Opiates Screen Ur Methadone, Qual Urine Barbiturates Ur Phencyclidine (PCP) U Amphetamin/Meth Scrn MDMA (Ecstasy) Screen U Benzodiazepines Scrn Ur Cocaine Metabolite U Marijuana (THC) Screen Ethyl Alcohol mg/dL < 10.0 SARS-CoV-2, RNA, NAAT 12/25/22 12/25/22 12/25/22 02:45 02:45 08:03 WBC RBC Hgb Hct MCV MCH MCHC RDW Std Deviation RDW Coeff of Samia Plt Count MPV Immature Gran % (Auto) Neut % (Auto) Lymph % (Auto) Irwin % (Auto) Eos % (Auto) Baso % (Auto) Neut # (Auto) Lymph # (Auto) Irwin # (Auto) Eos # (Auto) Baso # (Auto) Immature Gran # (Auto) PT 16.1 H INR 1.5 H Sodium 137 Potassium 4.1 Chloride 104 Carbon Dioxide 24 Anion Gap 9 BUN 40 H Creatinine 1.19 Est Cr Clr Drug Dosing 72.0 Est GFR ( Amer) 73.9 Est GFR (Non-Af Amer) 63.7 BUN/Creatinine Ratio 33.6 H Glucose 127 H Calcium 8.9 Phosphorus Magnesium Total Bilirubin 3.8 H Direct Bilirubin 1.6 H AST 94 H ALT 210 H Alkaline Phosphatase 77 Troponin I High Sens 96.0 H* D B-Natriuretic Peptide Total Protein 6.7 Albumin 3.9 Globulin Albumin/Globulin Ratio Lipase Urine Color Urine Appearance Urine pH Ur Specific [place] Urine Protein Urine Glucose (UA) Urine Ketones Urine Blood Urine Nitrite Urine Bilirubin Urine Urobilinogen Ur Leukocyte Esterase Urine WBC (Auto) Urine RBC (Auto) U Hyaline Cast (Auto) U Epithel Cells (Auto) Urine Bacteria (Auto) Urine Opiates Screen Ur Methadone, Qual Urine Barbiturates Ur Phencyclidine (PCP) U Amphetamin/Meth Scrn MDMA (Ecstasy) Screen U Benzodiazepines Scrn Ur Cocaine Metabolite U Marijuana (THC) Screen Ethyl Alcohol mg/dL SARS-CoV-2, RNA, NAAT Medications Administered Medication List Aspirin (Aspirin 81 Mg Ectab) 81 mg PO DAILY [facility] Stop: 01/24/23 08:59 Last Admin: 12/25/22 08:41 Dose: 81 mg Documented By: HLK Furosemide (Furosemide 40 Mg/4 Ml Vial) 40 mg IV [id number] [facility] Stop: 01/24/23 08:59 Last Admin: 12/25/22 08:41 Dose: 40 mg Documented By: HLK Heparin Sodium/Dextrose (Heparin Sodium/Dextrose) 25,000 units in 500 mls @ 31 mls/hr IV .[id number] [facility]; Protocol Stop: 01/24/23 10:44 Last Admin: 12/25/22 11:41 Dose: 1,550 units/hr, 31 mls/hr Documented By: SUHAIL Co-signed By: KELSEY Discontinued Medications Aspirin (Aspirin Chew 324 Mg) 324 mg PO NOW STA Stop: 12/24/22 19:51 Last Admin: 12/24/22 20:39 Dose: 324 mg Documented By: ANGELINE Enoxaparin Sodium (Enoxaparin Inj 40 Mg/0.4 Ml Syr) 40 mg SQ QAM [facility] Stop: 01/24/23 08:59 Last Admin: 12/25/22 08:41 Dose: 40 mg Documented By: SUHAIL Furosemide (Furosemide 40 Mg/4 Ml Vial) 40 mg IV ONE ONE Stop: 12/24/22 19:46 Last Admin: 12/24/22 20:40 Dose: 40 mg Documented By: ANGELINE Heparin Sodium/Dextrose (Heparin Iv Adult Wt-Based Standard *No* Bolus Protocol) 1 each IV ONE ONE; Protocol Stop: 12/25/22 10:20 Last Admin: 12/25/22 11:41 Dose: 1 each Documented By: SUHAIL Acetaminophen (Ofirmev) 1,000 mg in 100 mls @ 400 mls/hr IV NOW STA Stop: 12/24/22 20:51 Last Infusion: 12/24/22 23:46 Dose: 0 mls/hr Documented By: Admin: 12/24/22 21:24 Dose: 400 mls/hr Documented By: ANGELINE Lorazepam (Lorazepam 2 Mg/1 Ml Vial) 0.5 mg IV NOW STA Stop: 12/24/22 20:38 Last Admin: 12/24/22 21:24 Dose: 0.5 mg Documented By: ANGELINE PG Care Time/CCT Total # of Minutes Spent Total Time Spent with Patient: Total time spent is greater than 50% in coordination of care (as documented) at patient's floor/unit and/or counseling patient:58 [place] [address] IN/OBS CONSULT LVL 5,80M Patient Type New History Detailed Exam Detailed Medical Decision Making Moderate Complexity Diagnoses HFrEF (heart failure with reduced ejection fraction) I50.20 Cardiomyopathy I42.9 LV (left ventricular) mural thrombus I51.3 Elevated troponin R77.8 Long QT interval R94.31 Non-sustained ventricular tachycardia I47.29 Time Spent (min) 92
--- NOTE | 2022-12-25 10:05 | XCELERA ---
[id number] [id number]
[2022-12-25] MEDS ORDERED: Heparin IV Adult Wt-Based Standard *NO* Bolus Protocol IV ONE (10:19)
[2022-12-25] MEDS: carvediloL 3.125 MG TAB PO SCH ×4 (11:30→20:23)
[2022-12-25] MEDS: HEPARIN SODIUM/DEXTROSE 25,000 UNITS/500 ML BAG IV SCH (11:41)
--- NOTE | 2022-12-25 13:01 | Electrocardiogram Report ---
Test Reason : Blood Pressure : / mmHG Vent. Rate : 100 BPM Atrial Rate : 100 BPM P-R Int : 160 ms QRS Dur : 132 ms QT Int : 404 ms P-R-T Axes : 067 016 093 degrees QTc Int : 521 ms Normal sinus rhythm Left atrial enlargement Left ventricular hypertrophy with QRS widening T wave abnormality, consider lateral ischemia Abnormal ECG No previous ECGs available Confirmed by Cameron Colmenares ([id number]) on 12/25/2022 1:01:11 PM Referred By: REFERRED SELF Confirmed By:Cameron Colmenares
[2022-12-25] MEDS: lisinopril 5 MG TAB PO SCH (14:25)
[2022-12-25] MEDS: SPIRONOLACTONE 25 MG TAB PO SCH (14:25)
[2022-12-25] MEDS ORDERED: carvediloL 3.125 MG TAB PO SCH (17:00)
[2022-12-25 18:38] LABS: Partial Thromboplastin Ratio 2.1
--- NOTE | 2022-12-25 22:56 | Hospitalist Progress Note ---
Date of Service December 25, 2022 Assessment & Plan (1) Shortness of breath: Plan: Nonischemic acute cardiomyopathy with systolic dysfunction 67yo male presents with progressive shortness of breath over the last month. He has had adequate oxygenation on room air. CXR with cardiomegaly but otherwise no acute process to explain his SOB. Lung exam with bibasilar crackles - no wheezing at time of exam. Marked elevation of BNP as well as troponin. Patient with no complaint of chest pain. Patient with some cardiac history - uncertain of the details, no records and patient is not clear. Sounds as though he may have had a catheterization with thrombectomy. He is not sure if he had a heart attack. He denies known history of heart failure or arrhythmia. No stents in place per patient. Suspect CHF: echo completed, low EF20% -Admit to PCU, continuous cardiac monitoring -Breathing has improved. -Continue Lasix 40mg IV BID -Daily weights and I/O monitoring -Cardiology consultation appreciated -getting cardiac cath in AM -Obtain records from [place] and [facility] if able (2) Elevated troponin: Plan: Patient with elevated troponin of 100.2 as well as BNP of 3414. Patient denies chest pain. He does have some EKG findings - borderline QRS, prolonged QTc, LAE, LVH and lateral T-wave changes. -Telemetry monitoring -EKG with chest pain -trop downtrending -continue 81mg po daily until more information about patient's cardiac history can be obtained. (3) Abdominal pain: Plan: Patient complaining of abdominal pain. CT obtained and shows no acute reason for the pain - diverticulosis without diverticulitis, non-obstructing renal stones. No leukocytosis. No anion gap acidosis. Lipase is normal. He does have abnormal LFTs AST=96, UDG=805 and TBili of 3.8. Liver, gallbladder and ducts are unremarkable on CT. ?Congestive hepatopathy vs other -Check INR -Repeat LFTs in AM F/E/N - Diuresis with Lasix, electrolytes WNL, AHA diet as tolerated Ppx - Lovenox Code - Full per discussion with patient Dispo - Admit to PCU Admission and Anticipated Discharge Date Admission Date: December 24, 2022 Subjective 67 yo male reports no new symptoms. Review of Systems Review of Systems: All systems reviewed & are unremarkable except as noted in HPI & below Physical Exam Physical Exam: General: patient disheveled in appearance, oriented x3. Skin: warm, dry, intact, no rashes or lesions HEENT: NC/AT, PERRL, EOMI Heart: +S1/S2, regular, no m/r/g. Extremities cool to touch but with palpable pulses. +JVD noted. Lungs: equal air entry bilaterally, crackles in bilateral bases, no rhonchi/wheezing Abd: +BS, soft, tender in epigastric region and lower abdomen with no rebound/guarding/peritonitis, no organomegaly or ascites. Bruising present on left flank. Ext: slightly cool to touch, 2+ pulses in UE/LE bilaterally, no clubbing /cyanosis or edema Neuro: nonfocal, patient AA&O x 3, speech intact, no facial droop, moving all extremities on command with equal strength 5/5 Results & Data Results & Data Vital Signs (Past 12 Hours) Vital Signs Temp Pulse Pulse Resp BP Pulse Ox O2 Del Method 12/25/22 22:32 36.7 C 63 20 90/65 L 99 Room Air 12/25/22 19:00 36.5 C 81 16 95/68 L 97 Room Air 12/25/22 17:52 Room Air 12/25/22 16:38 36.8 C 80 19 96/57 L 93 Room Air 12/25/22 13:44 109 H 12/25/22 12:09 36.9 C 93 H 18 112/75 95 Room Air PG Care Time/CCT Total # of Minutes Spent Total Time Spent with Patient: Total time spent is greater than 50% in coordination of care (as documented) at patient's floor/unit and/or counseling patient: Coding Level of Care Code 79787 SUB INP/OBS CARE 3/50MIN Diagnoses Shortness of breath R06.02 Elevated troponin R77.8 Abdominal pain R10.9
[2022-12-26] MEDS: HEPARIN SODIUM/DEXTROSE 25,000 UNITS/500 ML BAG IV SCH (02:27)
[2022-12-26 05:55] LABS: Partial Thromboplastin Ratio 2.8
[2022-12-26 06:17] LABS: Partial Thromboplastin Time 79.3 Seconds (21.0-31.0)
[2022-12-26] MEDS: FUROSEMIDE 40 MG/4 ML VIAL IV SCH ×2 (08:26→16:24)
[2022-12-26] MEDS: ASPIRIN 81 MG ECTAB PO SCH (08:26)
[2022-12-26] MEDS: SPIRONOLACTONE 25 MG TAB PO SCH (08:27)
[2022-12-26] MEDS: carvediloL 3.125 MG TAB PO SCH ×2 (08:27→16:24)
[2022-12-26] MEDS: lisinopril 5 MG TAB PO SCH (08:28)
[2022-12-26 09:17] LABS: Hematocrit (blood only) 52.8 % (42.0-52.0); Hemoglobin 17.9 g/dl (14.0-18.0); Mean Corpuscular Hemoglobin 30.1 pg (25.0-34.0); Mean Corpuscular Hgb Conc 33.9 g/dL (32.0-36.0); Mean Corpuscular Volume 88.9 fL (80.0-100.0); Mean Platelet Volume 12.1 fL (9.4-12.4); Platelet Count 129 K/uL (130-400); RDW Coefficient of Variation 16.8 % (11.5-14.5); RDW Standard Deviation 49.8 fL (36.4-46.3); Red Blood Count 5.94 M/uL (4.70-6.10); White Blood Count 8.42 K/ul (4.8-10.8)
[2022-12-26 09:35] LABS: Albumin Globulin Ratio 1.3 (0.9-2); Albumin Level 3.6 gm/dl (3.4-5.0); BUN Creatinine Ratio 30.9 (10-20); Bilirubin,Total 3.4 mg/dl (0.2-1.0); Calcium 8.5 mg/dl (8.6-10.3); Creatinine Clr Calc Pharmacy 71.6 ml/min; Est GFR (Non-African American) 61.2 ml/min; Globulin 2.7 gm/dl (2.5-4.0); Potassium 3.9 mmol/L (3.5-5.1); Total Protein 6.3 gm/dl (6.0-8.3)
[2022-12-26] MEDS ORDERED: HEPARIN (PORCINE) 1000 UNIT/ML 10 ML (CATH LAB USE ONLY) ONE (11:44)
[2022-12-26] MEDS ORDERED: MIDAZOLAM HCL 1 MG/ML 2ML VIAL ONE (11:45)
[2022-12-26] MEDS ORDERED: fentaNYL citrate PF 100 MCG/2 ML VIAL ONE (11:45)
[2022-12-26] MEDS ORDERED: niCARdipine HCL INJ 2.5 MG/ML 10 ML AMP ONE (11:45)
[2022-12-26] MEDS ORDERED: NITROGLYCERIN/D5W 100MCG/ML 20ML SYR ONE (11:46)
[2022-12-26] MEDS ORDERED: ASPIRIN 81 MG CHEW ONE (12:24)
[2022-12-26] MEDS ORDERED: diphenhydrAMINE 50 MG/ML VIAL ONE (12:58)
--- NOTE | 2022-12-26 13:33 | Post Anesthesia Assessment ---
Date of Service December 26, 2022 Post Sedation Assessment Vital Signs Temp Pulse Pulse Resp BP Pulse Ox O2 Del Method 12/26/22 11:36 82 18 101/71 98 Room Air 12/26/22 08:04 36.4 C 92 H 20 105/72 95 Room Air 12/26/22 03:33 36.5 C 85 14 92/60 L 97 Room Air 12/25/22 23:37 87 12/25/22 22:32 36.7 C 63 20 90/65 L 99 Room Air 12/25/22 19:00 36.5 C 81 16 95/68 L 97 Room Air 12/25/22 17:52 Room Air 12/25/22 16:38 36.8 C 80 19 96/57 L 93 Room Air 12/25/22 13:44 109 H Recovery Score Activity: Moves 4 extremities Respiration: Deep Breath/Cough Circulation: +/-20% PreAnes Value Consciousness: Arouseable (by name) Oxygen Saturation: > 92% On Room Air Discharge Sedation Level of Care: Fast Track Phase II Post Sedation Plan On clinical assessment, the patient appears to have tolerated the sedation without complications. Patient is recovering as anticipated. Patient will continue to be monitored by nursing and may be discharged when sedation discharge criteria are met per below protocol. Upon Completions of procedure up to 15 minutes continue every 5 minute vital signs and the P.A.R. score; then discharge to a Phase I or Fast Track to Phase II per the following guidelines: * Discharge Patient to appropriate Phase II area if PAR is 8 or greater or return to pre- procedure baseline. The post - procedure orders will be as directed. * If PAR score is less than 8 or not return to pre-procedure baseline then patient will follow Phase I monitoring till PAR is reached for Phase II. The Phase I may be done in procedure room or may call to secure a Phase I area. * If naloxone or flumazenil are used for reversal, hold in Phase I for continued monitoring from when last reversal dose was given for a minimum of 60 minutes or longer pending the nurse and/or physician discretion of patient condition before discharge to Phase II. Please call the Sedation Physician to re-evaluate and complete post-note for discharge to Phase II area. Do NOT discharge from procedure sedation or Phase 1 until post- sedation evaluation note is complete by procedure /sedation MD Sedation Discharge Instructions to be given to the patient at discharge to home. [facility] Procedure Codes (Charges) Indication for Procedure Indication for procedure: cardiomyopathy Sedation/Anesthesia Procedure 1: Sedation/Anesthesia: 29743 Mod Sedation by the same physician;Init15 Min Child Age 5 & Up (start time 1256, end 1311) Total Sedation Time (minutes): 15
--- NOTE | 2022-12-26 13:41 | Cardiac Catheterization ---
[facility] Data: Epic [facility] Cardiac Status Clinical evaluation leading to the procedure CAD Presenation: Sx unlikely to be ischemic Anginal Classification: No Symptoms (Shortness of breath only) Heart Failure: NYHA Class: CCS IV Cardiogenic Shock within 24 Hours: No Cardiac Arrest within 24 Hours: No Imaging Studies Past 6 Months: Yes Stress Studies Past 6 Months: No Coronary Anatomy Dominant: Co-Dominant Left Main (% Stenosis): Normal LAD (% Stenosis): Mid (Mild diffuse) D1 (% Stenosis): Normal D2 (% Stenosis): Normal Circumflex (% Stenosis): Normal OM1 (% Stenosis): Normal OM2 (% Stenosis): Normal L PL1 (% Stenosis): Normal L PDA (% Stenosis): Normal RCA (% Stenosis): Mid (Diffuse 20%) R PDA (% Stenosis): Normal R PL1 (% Stenosis): Normal Diagnostic Physicians Name: Yared Chavez MD, PhD Closure Device Percutaneous Entry Location: Radial Closure Device: Radial Band Recommendations: Medical Therapy and/or Counseling Cardiac Cath Procedure Full Procedure Date December 26, 2022 Pre-Procedure Diagnosis Pre-Procedure Diagnosis: Cardiomyopathy AUC Score AUC Score: 07 Post-Procedure Diagnosis Post-Procedure Diagnosis: Mild CAD Procedure(s) Performed Procedure(s) Performed: Coronary Angiography and Ultrasound Guided Vascular Access [employer] Professor Yared Chavez MD, PhD Estimated Blood Loss Estimated Blood Loss: 5 ml Medication(s) Medication(s): Diphenhydramine, Fentanyl, Heparin, Lidocaine 1%, Nicardipine, Nitroglycerin and Versed Summary of Findings Brief description: Patient was brought to the cardiac catheterization suite where he was shaved and prepped in a sterile fashion. Sedated using IV Versed, fentanyl, and Benadryl. Soft tissues of the right wrist were anesthetized using 2.5 mL of 1% Xylocaine. The right radial artery was accessed with a modified Seldinger technique under ultrasonic guidance (image saved). A 6 [place]ic radial artery glide sheath was placed. Patient was provided anticoagulation with IV heparin and antispasmodics including nitroglycerin and nicardipine. All catheters were advanced and exchanged over a 0.035 J-tip wire. Left coronary angiography in orthogonal views with a 5 [place] 4 diagnostic catheter. Right coronary angiography in orthogonal views with a 5 [place] JR4 diagnostic catheter. Left heart cath was not performed secondary to known large thrombus in the LV. Diagnostic catheters were removed. Radial artery sheath was removed. Hemostasis was obtained using the TR band. Patient was hemodynamically stable and asymptomatic. He was returned to the recovery area. This ended the case. Coronary angiography findings: [id number] and LAD, ramus, and circumflex. No angiographically evident disease. LAD-large caliber and transapical. Proximal segment without disease. First major branch is a large branching septal. At the same level there is a large branching diagonal. These vessels have no disease. The mid segment then has mild diffuse disease and provides a large branching second septal. The distal LAD has no disease and provides a large branching second diagonal. The LAD wraps the apex providing flow to the posterior interventricular groove and also provides a additional branch posteriorly. Ramus-large caliber and codominant vessel. small caliber vessel without disease. LCx-Travels in the AV groove where the first branch is a large atrial branch. T his is followed by a medium caliber first obtuse marginal. There is then a medium to large caliber branching OM 2. The distal AV groove vessel remains large and becomes a large branching posterior lateral from which a small caliber PDA arises. There is no angiographically evident disease in the circumflex or its branches. RCA-this is large caliber and codominant. Proximal segment without disease. The mid segment has mild disease of up to 20% narrowing. The distal vessel has no disease and bifurcates into a medium to large caliber branching posterolateral and then a long but small caliber PDA. The RCA and its branches have no additional disease. Summary: 1. Mild nonocclusive coronary disease as described. 2. The patient's cardiomyopathy is out of proportion to this mild coronary disease. Therefore, this is a nonischemic dilated cardiomyopathy. 3. Recommend guideline directed medical therapy for primary prevention of coronary disease as well as appropriate therapy for chronic systolic heart failure. Hemodynamics Rest Ao:: 105/75 mmHg Final Ao: 97/81 mmHg LV: Not performed Recommendations Recommendations: Medical Therapy and/or Counseling Radiation Exposure (mGy) 927 mGy, fluoroscopy time 2.0 minutes Contrast (mls) 74 mL Anesthesia 1 mg IV Versed, 50 mcg IV fentanyl, 25 mg IV Benadryl. Start 1256, end 1311 Procedural Complication(s) None Disposition Recovery Room\PACU I attest to the content of the Intraoperative Record and any orders documented therein. Any exceptions are noted below. [facility] Card Cath Procedure Codes Cardiac Catheterization Procedure 1: Cardiovascular Cath Procedures: 71376 Coronaries Therapeutic Services & Ancillary Procedure 1: Cardiovascular Tx and Anc Procedures: 82385 Ultrasonic Guidance Vascular Access Moderate Sedation Procedure 1: Sedation/Anesthesia: 28955 Mod Sedation by the same physician;Init15 Min Child Age 5 & Up (Start 1256, end time 1311) PG Care Time/CCT Total # of Minutes Spent Total Time Spent with Patient: Total time spent is greater than 50% in coordination of care (as documented) at patient's floor/unit and/or counseling patient:
[2022-12-26 15:20] LABS: iSTAT Arterial Blood Gas HCO3 22 meg/L (19-24); iSTAT Arterial Blood Gas pCO2 32 mmHg (35-46); iSTAT Arterial Blood Gas pH 7.45 (7.35-7.45); iSTAT Arterial Blood Gas pO2 73 mmHg (80-95); iSTAT Carbon Dioxide 23 mmol/L (24-31); iSTAT Hematocrit 53 % (42-52); iSTAT Potassium 3.1 mmol/L (3.3-5.0); iSTAT Sodium 136 mmol/L (135-144)
[2022-12-26] MEDS: APIXABAN 5 MG TABLET PO SCH (16:59)
[2022-12-26] MEDS ORDERED: LACTATED RINGER'S 250 ML IV ONE ×2 (21:08→23:04)
[2022-12-26 21:20] LABS: Calcium 8.8 mg/dl (8.6-10.3); Creatinine Clr Calc Pharmacy 68.2 ml/min; Est GFR (Non-African American) 57.8 ml/min; Potassium 4.2 mmol/L (3.5-5.1)
--- NOTE | 2022-12-26 21:25 | Hospitalist Progress Note ---
Date of Service December 26, 2022 Assessment & Plan (1) Shortness of breath: Plan: Nonischemic acute cardiomyopathy with systolic dysfunction 67yo male presents with progressive shortness of breath over the last month. He has had adequate oxygenation on room air. CXR with cardiomegaly but otherwise no acute process to explain his SOB. Lung exam with bibasilar crackles - no wheezing at time of exam. Marked elevation of BNP as well as troponin. Patient with no complaint of chest pain. Patient with some cardiac history - uncertain of the details, no records and patient is not clear. Sounds as though he may have had a catheterization with thrombectomy. He is not sure if he had a heart attack. He denies known history of heart failure or arrhythmia. No stents in place per patient. Suspect CHF: echo completed, low EF20% -Admit to PCU, continuous cardiac monitoring -Breathing has improved. -Continue Lasix 40mg IV BID -Daily weights and I/O monitoring -Cardiology consultation appreciated -getting cardiac cath in AM: negative. -patient appears to be improving, will monitor -Obtain records from [place] and [facility] if able Later in evening, patient became hypotensive, will hold diuretuics, informed overnight resident. ordered lactic acid, bmp, bnp. (2) Elevated troponin: Plan: Patient with elevated troponin of 100.2 as well as BNP of 3414. Patient denies chest pain. He does have some EKG findings - borderline QRS, prolonged QTc, LAE, LVH and lateral T-wave changes. -Telemetry monitoring -EKG with chest pain -trop downtrending -continue 81mg po daily until more information about patient's cardiac history can be obtained. (3) Abdominal pain: Plan: Patient complaining of abdominal pain. CT obtained and shows no acute reason for the pain - diverticulosis without diverticulitis, non-obstructing renal stones. No leukocytosis. No anion gap acidosis. Lipase is normal. He does have abnormal LFTs AST=96, RWM=881 and TBili of 3.8. Liver, gallbladder and ducts are unremarkable on CT. ?Congestive hepatopathy vs other -Check INR -Repeat LFTs in AM F/E/N - Diuresis with Lasix, electrolytes WNL, AHA diet as tolerated Ppx - Lovenox Code - Full per discussion with patient Dispo - Admit to PCU Admission and Anticipated Discharge Date Admission Date: December 24, 2022 Subjective Patient reports no new symptoms. He continues to have abdominal pain, but it is less severe. Review of Systems Review of Systems: All systems reviewed & are unremarkable except as noted in HPI & below Physical Exam Physical Exam: General: patient disheveled in appearance, oriented x3. Skin: warm, dry, intact, no rashes or lesions HEENT: NC/AT, PERRL, EOMI Heart: +S1/S2, regular, no m/r/g. Extremities cool to touch but with palpable pulses. +JVD noted. Lungs: equal air entry bilaterally, crackles in bilateral bases, no rhonchi/w heezing Abd: +BS, soft, tender in epigastric region and lower abdomen with no rebound/guarding/peritonitis, no organomegaly or ascites. Bruising present on left flank. Ext: slightly cool to touch, 2+ pulses in UE/LE bilaterally, no clubbing/cyanosis or edema Neuro: nonfocal, patient AA&O x 3, speech intact, no facial droop, moving all extremities on command with equal strength 5/5 Results & Data Results & Data Vital Signs (Past 12 Hours) Vital Signs Temp Pulse Resp BP Pulse Ox O2 Del Method 12/26/22 19:00 36.5 C 89 20 92/65 L 93 Room Air 12/26/22 18:20 89 18 82/60 L 96 Room Air 12/26/22 17:20 85 18 98/62 L 95 Room Air 12/26/22 16:20 88 18 101/69 95 Room Air 12/26/22 15:26 36.5 C 87 18 96/65 L 95 Room Air 12/26/22 14:49 88 18 96/66 L 96 Room Air 12/26/22 14:20 86 18 106/76 93 Room Air 12/26/22 14:05 90 18 102/75 92 Room Air 12/26/22 13:49 36.4 C L 76 18 106/79 96 Room Air 12/26/22 13:30 93 H 18 118/79 95 Room Air 12/26/22 11:36 82 18 101/71 98 Room Air PG Care Time/CCT Total # of Minutes Spent Total Time Spent with Patient: Total time spent is greater than 50% in coordination of care (as documented) at patient's floor/unit and/or counseling patient: Coding Level of Care Code 15544 SUB INP/OBS CARE 3/50MIN Diagnoses Shortness of breath R06.02 Elevated troponin R77.8 Abdominal pain R10.9
[2022-12-26] MEDS ORDERED: POTASSIUM CHLORIDE / WTR 10 MEQ/100 ML PLCT IV SCH (23:00)
[2022-12-27] MEDS: ACETAMINOPHEN 325 MG TAB PO PRN ×2 (05:21→17:46)
[2022-12-27 06:31] LABS: Hematocrit (blood only) 50.6 % (42.0-52.0); Hemoglobin 17.8 g/dl (14.0-18.0); Mean Corpuscular Hemoglobin 29.9 pg (25.0-34.0); Mean Corpuscular Hgb Conc 35.2 g/dL (32.0-36.0); Platelet Count 144 K/uL (130-400); RDW Coefficient of Variation 15.8 % (11.5-14.5); RDW Standard Deviation 46.9 fL (36.4-46.3); Red Blood Count 5.95 M/uL (4.70-6.10); White Blood Count 7.44 K/ul (4.8-10.8)
[2022-12-27 07:02] LABS: Albumin Level 3.3 gm/dl (3.4-5.0); BUN Creatinine Ratio 32.4 (10-20); Bilirubin,Total 2.6 mg/dl (0.2-1.0); C Reactive Protein 4.87 mg/dl (0-0.5); Calcium 8.5 mg/dl (8.6-10.3); Creatinine Clr Calc Pharmacy 81.5 ml/min; Est GFR (Non-African American) 71.6 ml/min; Potassium 3.9 mmol/L (3.5-5.1); Total Protein 6.2 gm/dl (6.0-8.3)
[2022-12-27 07:26] LABS: INR 1.3 (0.9-1.1); Prothrombin Time 13.6 Seconds (9.0-12.0)
[2022-12-27] MEDS: carvediloL 3.125 MG TAB PO SCH ×2 (07:47→17:42)
--- NOTE | 2022-12-27 07:56 | XRay Report ---
SINGLE VIEW CHEST CLINICAL HISTORY: Thoracic back pain FINDINGS: 2 AP, portable, upright chest radiographs are compared to study dated 12/24/2022. The heart is markedly enlarged. The pulmonary vasculature is noncongested. Chronic interstitial thickening is s imilar to previous. No airspace consolidation or large pleural effusion is identified. No pneumothora x is seen. The skeletal structures are osteopenic. The bony thorax is grossly intact. IMPRESSION: Marked cardiomegaly with no acute cardiopulmonary abnormality identified. ACT 112: Negative or not required by law. Electronically signed by: Ovidio Moreno M.D. 12/27/2022 7:55 AM
[2022-12-27] MEDS: lisinopril 5 MG TAB PO SCH (09:06)
[2022-12-27] MEDS: APIXABAN 5 MG TABLET PO SCH ×2 (09:31→21:14)
[2022-12-27] MEDS: ASPIRIN 81 MG ECTAB PO SCH (09:32)
[2022-12-27] MEDS: SPIRONOLACTONE 25 MG TAB PO SCH (09:32)
--- NOTE | 2022-12-27 15:17 | Electrocardiogram Report ---
Test Reason : Blood Pressure : / mmHG Vent. Rate : 087 BPM Atrial Rate : 087 BPM P-R Int : 176 ms QRS Dur : 132 ms QT Int : 430 ms P-R-T Axes : 047 -01 147 degrees QTc Int : 517 ms Normal sinus rhythm Left atrial enlargement Left ventricular hypertrophy with QRS widening and repolarization abnormality Abnormal ECG When compared with ECG of 24-DEC-2022 18:58, No significant change was found Confirmed by Cameron Colmenares ([id number]) on 12/27/2022 3:17:18 PM Referred By: REFERRED SELF Confirmed By:Cameron Colmenares
[2022-12-27] MEDS ORDERED: FAMOTIDINE 40 MG TABLET PO ONE (20:51)
--- NOTE | 2022-12-27 23:13 | Hospitalist Progress Note ---
Date of Service December 27, 2022 Assessment & Plan (1) Shortness of breath: Plan: Nonischemic acute cardiomyopathy with systolic dysfunction 67yo male presents with progressive shortness of breath over the last month. He has had adequate oxygenation on room air. CXR with cardiomegaly but otherwise no acute process to explain his SOB. Lung exam with bibasilar crackles - no wheezing at time of exam. Marked elevation of BNP as well as troponin. Patient with no complaint of chest pain. Patient with some cardiac history - uncertain of the details, no records and patient is not clear. Sounds as though he may have had a catheterization with thrombectomy. He is not sure if he had a heart attack. He denies known history of heart failure or arrhythmia. No stents in place per patient. Suspect CHF: echo completed, low EF20% -Admit to PCU, continuous cardiac monitoring -Breathing has improved. -was on Lasix 40mg IV BID, patient became more dry, and hypotensive on 12/26 Held on 12/27, anticipate will restart Lasix daily on 12/28 -Daily weights and I/O monitoring -Cardiology consultation appreciated -cardiac cath in AM: negative. -Life vest obtained. -patient appears to be improving, will monitor -Obtain records from [place] and [facility] if able Clear for discharge, but will need rehab. (2) Elevated troponin: Plan: Patient with elevated troponin of 100.2 as well as BNP of 3414. Patient denies chest pain. He does have some EKG findings - borderline QRS, prolonged QTc, LAE, LVH and lateral T-wave changes. -Telemetry monitoring -EKG with chest pain -trop downtrending -continue 81mg po daily until more information about patient's cardiac history can be obtained. (3) Abdominal pain: Plan: Patient complaining of abdominal pain. CT obtained and shows no acute reason for the pain - diverticulosis without diverticulitis, non-obstructing renal stones. No leukocytosis. No anion gap acidosis. Lipase is normal. He does have abnormal LFTs AST=96, JJT=257 and TBili of 3.8. Liver, gallbladder and ducts are unremarkable on CT. ?Congestive hepatopathy vs other -monitor INR -Repeat LFTs in AM -will consult GI for possible EGD given epigastric pain. F/E/N - Diuresis with Lasix, electrolytes WNL, AHA diet as tolerated Ppx - Lovenox Code - Full per discussion with patient Dispo - Admit to PCU Admission and Anticipated Discharge Date Admission Date: December 24, 2022 Subjective Patient continues to complain of intermittent epigastric pain. Review of Systems Review of Systems: All systems reviewed & are unremarkable except as noted in HPI & below Physical Exam Physical Exam: General: patient is lying in bed, oriented x3. Skin: warm, dry, intact, no rashes or lesions HEENT: NC/AT, PERRL, EOMI Heart: +S1/S2, regular, no m/r/g. Extremities cool to touch but with palpable pulses. +JVD noted. Lungs: equal air entry bilaterally, crackles in bilateral bases, no rhonchi/wheezing Abd: +BS, soft, tender in epigastric region and lower abdomen with no rebound/guarding/peritonitis, no organomegaly or ascites. Bruising present on left flank. Ext: slightly cool to touch, 2+ pulses in UE/LE bilaterally, no clubbing/cyanosis or edema Neuro: nonfocal, patient AA&O x 3, speech intact, no facial droop, moving all extremities on command with equal strength 5/5 Results & Data Results & Data Vital Signs (Past 12 Hours) Vital Signs Temp Pulse Resp BP Pulse Ox O2 Del Method O2 Flow Rate 12/27/22 19:00 36.7 C 81 20 99/69 L 91 Nasal Cannula 2 12/27/22 17:34 94 H 104/74 12/27/22 15:53 36.7 C 76 23 104/70 90 Room Air 12/27/22 11:49 36.6 C 86 18 93/62 L 98 Room Air PG Care Time/CCT Total # of Minutes Spent Total Time Spent with Patient: Total time spent is greater than 50% in coordination of care (as documented) at patient's floor/unit and/or counseling patient: Coding Level of Care Code 70741 SUB INP/OBS CARE 3/50MIN Diagnoses Shortness of breath R06.02 Elevated troponin R77.8 Abdominal pain R10.9
[2022-12-28 06:23] LABS: Hematocrit (blood only) 50.3 % (42.0-52.0); Mean Corpuscular Hemoglobin 29.7 pg (25.0-34.0); Mean Corpuscular Hgb Conc 33.8 g/dL (32.0-36.0); Mean Corpuscular Volume 87.9 fL (80.0-100.0); Mean Platelet Volume 11.9 fL (9.4-12.4); Platelet Count 151 K/uL (130-400); RDW Coefficient of Variation 15.5 % (11.5-14.5); RDW Standard Deviation 48.6 fL (36.4-46.3); Red Blood Count 5.72 M/uL (4.70-6.10); White Blood Count 7.68 K/ul (4.8-10.8)
[2022-12-28 06:41] LABS: Albumin Globulin Ratio 1.3 (0.9-2); Albumin Level 3.3 gm/dl (3.4-5.0); Bilirubin,Total 2.3 mg/dl (0.2-1.0); Calcium 8.6 mg/dl (8.6-10.3); Creatinine Clr Calc Pharmacy 93.6 ml/min; Est GFR (African American) 98.2 ml/min; Est GFR (Non-African American) 84.7 ml/min; Globulin 2.6 gm/dl (2.5-4.0); Potassium 4.5 mmol/L (3.5-5.1); Total Protein 5.9 gm/dl (6.0-8.3)
[2022-12-28 06:49] LABS: INR 1.2 (0.9-1.1); Prothrombin Time 13.1 Seconds (9.0-12.0)
[2022-12-28] MEDS: APIXABAN 5 MG TABLET PO SCH ×2 (07:53→20:55)
[2022-12-28] MEDS: ASPIRIN 81 MG ECTAB PO SCH (07:53)
[2022-12-28] MEDS: SPIRONOLACTONE 25 MG TAB PO SCH (07:54)
[2022-12-28] MEDS: ACETAMINOPHEN 325 MG TAB PO PRN (07:54)
[2022-12-28] MEDS: lisinopril 5 MG TAB PO SCH (08:54)
[2022-12-28] MEDS: carvediloL 3.125 MG TAB PO SCH ×2 (08:55→18:04)
--- NOTE | 2022-12-28 09:11 | Hospitalist Progress Note ---
Date of Service December 28, 2022 Assessment & Plan (1) Shortness of breath: Plan: Nonischemic acute cardiomyopathy with systolic dysfunction, HFrEF history of the same, EF 15-20%, Echo now shows large apical LV thrombus therapeutic anticoagulation started Cardiac cath with non occlusive disease -Cardiology consultation appreciated, -Life vest obtained. patient had some hypotension with diuretic therapy at this time we will continue carvedilol given intermittent atrial fibrillation therapeutically anticoagulated for LV thrombus we will start some Entresto this evening lowest dose possible (2) Elevated troponin: Plan: Patient with elevated troponin of 100.2 as well as BNP of 3414. felt to be demand ischemia from systolic HF on presentation (3) Abdominal pain: Plan: Patient complaining of abdominal pain. CT without acute changes, - diverticulosis without diverticulitis, non-obstructing renal stones. eilquis therpeutic dosing for apical thrombus Code - Full per discussion with patient Admission and Anticipated Discharge Date Admission Date: December 24, 2022 Subjective patient is musculoskeletal abdominal pain no additional chest pain. Voices an understanding of the need for rehab and also medical adherence to compliance. 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 Physical Exam Physical Exam: patient awake alert oriented x3 times tangential and wifty in his discussions card exam is regular, lungs are clear extremities are with trace edema patient comes dyspneic with minor exertion Results & Data Results & Data Vital Signs (Past 12 Hours) Vital Signs Temp Pulse Resp BP Pulse Ox O2 Del Method O2 Flow Rate 12/28/22 08:04 97.7 F 75 20 90/52 L 98 Room Air 12/28/22 07:49 77 20 96 Room Air 12/28/22 02:15 97.7 F 88 20 97/69 L 92 Nasal Cannula 2 12/27/22 23:00 97.7 F 91 H 20 101/72 96 Nasal Cannula 2 Laboratory Results reviewed CBC reviewed INR reviewed chemistry PG Care Time/CCT Total # of Minutes Spent Total Time Spent with Patient: Total time spent is greater than 50% in coordination of care (as documented) at patient's floor/unit and/or counseling patient: Coding Level of Care Code 34956 SUB INP/OBS CARE 3/50MIN Diagnoses Shortness of breath R06.02 Elevated troponin R77.8 Abdominal pain R10.9
--- NOTE | 2022-12-28 09:37 | Gastrointestinal Consultation ---
Date of Consultation December 28, 2022 Assessment & Plan (1) Abdominal pain: Symptoms do not necessarily sound GI in nature as they are relieved with stretching or being able to catch his breath, though he feels his pain can effect his appetite. He has ongoing cardiac issues with new onset a fib this morning and was being set up for a life vest at time of me seeing him this morning. CT without any cause for pain which is reassuring. LFTs were elevated but are trending downward and suspect that this is related to CHF - liver was also normal on CT. Discussed case with Dr. Asencio. - will start protonix 40mg po BID. - no plans for any endoscopic procedures at this time given ongoing cardiac issues and new a fib this morning. Discussed this with patient and his son at bedside who agreed with deferring GI work up at this time. History of Present Illness Reason for Consultation: epigastric pain Requesting Physician: Omar Haines MD Attending Physician: Phil Andrade MD History of Present Illness Patient is a 67 year old male who had presented to the ED with complaints of shortness of breath that had been ongoing since April 2022. Upon evaluation in the ED he was found to have elevated troponin as well as elevated BNP. Cardiology had evaluated the patient and he underwent a cardiac cath showing mild nonocclusive coronary disease and felt symptoms related to nonischemic dilated cardiomyopathy with systolic dysfunction. He had new onset A fib this morning and at time of my evaluation was getting set up for a life vest. GI consulted for abdominal pain. Patient tells me that his pain has been ongoing for several months and he gets episodes of this pain in his epigastric region a few times a week. He does not get symptoms daily. currently no abdominal pain. He can get occasional nausea as well as heartburn and usually uses pepto for this at home which is helpful. He tells me that pain seems to get better if he can stretch out or if he is able to rest and catch his breath. no nsaid use. He does feel like the pain can effect his appetite and has not been eating as much as usually. Patient's son was at bedside and tells me that patient may not be being entirely honest about his pain or symptoms. typically 1 bowel movement daily. no bleeding or melena. he has never had an egd or colonoscopy per patient. 12/28/22 wbc 7.6, hgb 17, hct 50.3, platelets 151, t bili 2.3, AST 39, ALT 116, Alk phos 116. CT 12/24 unremarkable for cause of of pain. see full report below. Allergies Allergy/AdvReac Type Severity Reaction Status Date / Time No Known Allergies Allergy Unverified 12/24/22 19:45 Home Medications Medication Instructions Recorded Confirmed Type apixaban 5 mg tablet (Eliquis) 5 mg PO BID #60 tabs 12/26/22 Rx Patient History Surgical History No significant past surgical history Family History Other No significant family history Social History Smoking Status: Current every day smoker Tobacco Type: Cigarettes Do You Dip or Chew Tobacco: No; Hx Alcohol Use: Yes Alcohol type: beer Hx Substance Use: No Preferred Language: Citizen Of [place] Communication Ability: Effective Dairy Tester Required: No Beliefs That Will Affect Care: None Current Living Situation: Alone Other Information That Helps Us Care for You: No Feels Safe at Home: Yes Safety Concerns: Feels Safe At This Time Assistive Devices: None Review of Systems Review of Systems: All systems reviewed & are unremarkable except as noted in HPI & below Physical Exam Constitutional: WD/WN, vitals as above Respiratory: normal respiratory effort, lungs clear to auscultation Cardiovascular: tachycardic Gastrointestinal (Abdomen): normal bowel sounds, soft, nontender, no hepatosplenomegaly Skin: no rashes, warm and dry Psychiatric: Orientation: alert and oriented x 3 Affect: euthymic affect Results & Data Vital Signs (Past 12 Hours) Vital Signs Temp Pulse Resp BP Pulse Ox O2 Del Method O2 Flow Rate 12/28/22 08:04 97.7 F 75 20 90/52 L 98 Room Air 12/28/22 07:49 77 20 96 Room Air 12/28/22 02:15 97.7 F 88 20 97/69 L 92 Nasal Cannula 2 12/27/22 23:00 97.7 F 91 H 20 101/72 96 Nasal Cannula [address] ABDOMEN + PELVIS Without Contrast EXAM: CT Abdomen and Pelvis Without Intravenous Contrast CLINICAL HISTORY: Reason for exam: abdominal pain. TECHNIQUE: Axial computed tomography images of the abdomen and pelvis without intravenous contrast. CTDI is 21 mGy and DLP is 986.25 mGy-cm. Automated exposure control was utilized for the study. A dose lowering technique was utilized adhering to the principles of ALARA. COMPARISON: No relevant prior studies available. FINDINGS: Lung bases: Scarring/atelectasis at the RIGHT lung base. Heart: Cardiomegaly. ABDOMEN: Liver: Unremarkable. No focal hepatic lesion. Gallbladder and bile ducts: Unremarkable. No calcified stones. No ductal dilation. Pancreas: Unremarkable. No ductal dilation. Spleen: Unremarkable. No splenomegaly. Adrenals: Unremarkable. No mass. Kidneys and ureters: Bilateral nonobstructing renal calculi measuring up to 4 mm in the RIGHT lower pole. No obstructive uropathy. Bilateral renal cysts measuring up to 3.7 x 4.7 cm in the RIGHT lower pole. Stomach and bowel: Diverticulosis, without acute diverticulitis. No small bowel obstruction. No free intraperitoneal air. PELVIS: Appendix: Normal appendix. Bladder: Unremarkable. No stones. Reproductive: Unremarkable as visualized. ABDOMEN and PELVIS: Intraperitoneal space: Unremarkable. No free air. No significant fluid collection. Bones/joints: Degenerative changes of the spine. No acute fracture. No dislocation. Soft tissues: Unremarkable. Vasculature: Atherosclerotic changes of the aorta. No abdominal aortic aneurysm. Lymph nodes: Unremarkable. No enlarged lymph nodes. IMPRESSION: 1. Normal appendix. 2. Bilateral nonobstructing renal calculi measuring up to 4 mm in the RIGHT lower pole. No obstructive uropathy. 3. Diverticulosis, without acute diverticulitis. No small bowel obstruction. No free intraperitoneal air. Electronically signed by: Lionel Molina MD 12/24/22 21:25 PM PG Care Time/CCT Total # of Minutes Spent Total Time Spent with Patient: Total time spent is greater than 50% in coordination of care (as documented) at patient's floor/unit and/or counseling patient: Coding Level of Care Code 24034 INT INP/OBS CARE 2/55MIN Diagnoses Abdominal pain R10.9 Time Spent (min) 65
[2022-12-28] MEDS: PANTOprazole 40 MG TAB PO SCH ×2 (10:52→20:56)
--- NOTE | 2022-12-28 14:36 | Electrocardiogram Report ---
Test Reason : Blood Pressure : / mmHG Vent. Rate : 107 BPM Atrial Rate : 326 BPM P-R Int : 000 ms QRS Dur : 130 ms QT Int : 390 ms P-R-T Axes : 000 008 185 degrees QTc Int : 520 ms Atrial flutter with variable A-V block Left ventricular hypertrophy with QRS widening and repolarization abnormality Abnormal ECG When compared with ECG of 27-DEC-2022 15:24, (unconfirmed) Atrial flutter has replaced Sinus rhythm Confirmed by Gennaro Jacobo ([id number]) on 12/28/2022 2:36:55 PM Referred By: REFERRED SELF Confirmed By:Garland Jacobo
--- NOTE | 2022-12-28 17:29 | Electrocardiogram Report ---
Test Reason : Blood Pressure : / mmHG Vent. Rate : 090 BPM Atrial Rate : 090 BPM P-R Int : 174 ms QRS Dur : 130 ms QT Int : 414 ms P-R-T Axes : 049 049 222 degrees QTc Int : 506 ms Normal sinus rhythm Biatrial enlargement Left ventricular hypertrophy with QRS widening and repolarization abnormality Abnormal ECG When compared with ECG of 27-DEC-2022 05:55, T wave inversion now evident in Inferior leads Confirmed by Gennaro Jacobo ([id number]) on 12/28/2022 5:29:03 PM Referred By: REFERRED SELF Confirmed By:Garland Jacobo
[2022-12-28] MEDS: VALSARTAN/SACUBITRIL 26/24MG TAB PO SCH (20:55)
[2022-12-28] MEDS: MELATONIN 3 MG TAB PO PRN (22:10)
[2022-12-29] MEDS: ASPIRIN 81 MG ECTAB PO SCH (08:53)
[2022-12-29] MEDS: PANTOprazole 40 MG TAB PO SCH ×2 (08:53→20:04)
[2022-12-29] MEDS: APIXABAN 5 MG TABLET PO SCH ×2 (08:54→20:05)
[2022-12-29] MEDS: carvediloL 3.125 MG TAB PO SCH ×2 (08:54→17:40)
[2022-12-29] MEDS: VALSARTAN/SACUBITRIL 26/24MG TAB PO SCH ×2 (08:55→20:05)
[2022-12-29] MEDS ORDERED: FUROSEMIDE 40 MG TAB PO ONE (15:30)
--- NOTE | 2022-12-29 16:54 | Hospitalist Progress Note ---
Date of Service December 29, 2022 Assessment & Plan (1) Shortness of breath: Plan: Nonischemic acute cardiomyopathy with systolic dysfunction, HFrEF history of the same, EF 15-20%, Echo now shows large apical LV thrombus therapeutic anticoagulation started Cardiac cath with non occlusive disease -Cardiology consultation appreciated, -Life vest obtained. will have comments on atrial arrythmia, ,remains on entresto and carvediolol plus added lasix 12/29/22 (2) Elevated troponin: Plan: Patient with elevated troponin of 100.2 as well as BNP of 3414. felt to be demand ischemia from systolic HF on presentation (3) Abdominal pain: Plan: Patient complaining of abdominal pain. CT without acute changes, - diverticu losis without diverticulitis, non-obstructing renal stones. eilquis therpeutic dosing for apical thrombus Code - Full per discussion with patient Admission and Anticipated Discharge Date Admission Date: December 24, 2022 Subjective patient has improvement in his musculoskeletal abdominal pain continues without additional chest pain. Voices an understanding of the need for rehab and also medical adherence to compliance. 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 Physical Exam Physical Exam: patient awake alert oriented x3 times tangential and wifty in his discussions card exam is regular, lungs are clear extremities are with trace edema patient comes dyspneic with minor exertion Results & Data Results & Data Vital Signs (Past 12 Hours) Vital Signs Temp Pulse Resp BP Pulse Ox O2 Del Method 12/29/22 12:00 97.9 F 85 20 98/65 L 99 Room Air 12/29/22 08:00 97.5 F L 70 18 95/52 L 99 Room Air PG Care Time/CCT Total # of Minutes Spent Total Time Spent with Patient: Total time spent is greater than 50% in coordination of care (as documented) at patient's floor/unit and/or counseling patient: Coding Level of Care Code 32354 SUB INP/OBS CARE 2/35MIN Diagnoses Shortness of breath R06.02 Elevated troponin R77.8 Abdominal pain R10.9
[2022-12-29] MEDS: LORazepam 0.5 MG TAB PO PRN (17:43)
[2022-12-29] MEDS: MELATONIN 3 MG TAB PO PRN (20:04)
[2022-12-29] MEDS: busPIRone 5 MG TAB PO SCH (20:04)
[2022-12-30] MEDS ORDERED: FUROSEMIDE 40 MG TAB PO SCH (09:00)
[2022-12-30] MEDS: APIXABAN 5 MG TABLET PO SCH ×2 (09:39→20:14)
[2022-12-30] MEDS: ASPIRIN 81 MG ECTAB PO SCH (09:40)
[2022-12-30] MEDS: carvediloL 3.125 MG TAB PO SCH ×2 (09:40→16:33)
[2022-12-30] MEDS: VALSARTAN/SACUBITRIL 26/24MG TAB PO SCH ×2 (09:40→20:15)
[2022-12-30] MEDS: busPIRone 5 MG TAB PO SCH ×2 (09:40→20:14)
[2022-12-30] MEDS: PANTOprazole 40 MG TAB PO SCH ×2 (09:40→20:14)
[2022-12-30 10:05] LABS: BUN Creatinine Ratio 26.1 (10-20); Calcium 8.7 mg/dl (8.6-10.3); Creatinine Clr Calc Pharmacy 76.5 ml/min; Est GFR (Non-African American) 66.4 ml/min; Magnesium 1.9 mg/dl (1.7-2.4)
[2022-12-30 12:23] LABS: Lyme Ab IgG w/WB Rflx Negative (Negative); Lyme Ab IgM w/WB Rflx Negative (Negative)
--- NOTE | 2022-12-30 12:53 | Cardiology Progress Note ---
Date of Service December 30, 2022 Assessment & Plan (1) Atrial flutter with rapid ventricular response: Plan: Ventricular rate still suboptimally controlled. Rather than increase carvedilol and risk recurrent hypotension, would add metoprolol succinate 25 mg twice daily to his regimen for better rate control. If hypotension becomes an issue, could also consider digoxin. (2) HFrEF (heart failure with reduced ejection fraction): Plan: On reduced dose Entresto and low-dose carvedilol, had transient hypotension on higher dose medications earlier. Unlikely to tolerate further upward titration of vasoactive medication. Appears euvolemic on furosemide 40 mg orally daily. Continue to monitor renal function, if creatinine rises further would hold diuretic for a day. (3) Cardiomyopathy: Plan: As above. (4) LV (left ventricular) mural thrombus: Plan: On apixaban, no bleeding issues. Not clear he needs to remain on aspirin, given that his coronary disease is mild and could reasonably be treated with monotherapy (apixaban) rather than dual therapy (apixaban plus aspirin). However, his bleeding risk is fairly low given the absence of hypertension, renal insufficiency, or advanced age. Admission and Anticipated Discharge Date Admission Date: December 24, 2022 Subjective No specific complaints. Slept poorly, but this is not unusual for him. He denies chest pain, dyspnea at rest, subjective palpitations, or lightheadedness. Telemetry shows atrial fibrillation with ventricular rate in the 110 bpm range. No ventricular dysrhythmias seen. Physical Exam Physical Exam: No distress. BP normotensive. Pulse 100-110 bpm and irregular. Skin: no ecchymoses or generalized lesions. HEENT: unremarkable. Neck: JVP at the clavicle at 90 degrees, no carotid bruits. Lungs: Mildly diminished breath sounds but clear. Cardiac: Irregular/tachycardic rhythm, normal S1-2, no obvious murmur. Abdomen: benign. Extremities: no edema, pulses intact. Neurologic: normal affect and conversation, nonfocal. Results & Data Laboratory Results Sodium 135, potassium 4.0, BUN 30, creatinine 1.15 (0.94 yesterday) PG Care Time/CCT Total # of Minutes Spent Total Time Spent with Patient: Total time spent is greater than 50% in coordination of care (as documented) at patient's floor/unit and/or counseling patient: Coding Level of Care Code 08167 SUB INP/OBS CARE 3/50MIN Diagnoses Atrial flutter with rapid ventricular response I48.92 HFrEF (heart failure with reduced ejection fraction) I50.20 Cardiomyopathy I42.9 LV (left ventricular) mural thrombus I51.3
--- NOTE | 2022-12-30 13:45 | Hospitalist Progress Note ---
Date of Service December 30, 2022 Assessment & Plan (1) Shortness of breath: Plan: Nonischemic acute cardiomyopathy with systolic dysfunction, HFrEF history of the same, EF 15-20%, Echo now shows large apical LV thrombus therapeutic anticoagulation started Cardiac cath with non occlusive disease -Cardiology consultation appreciated, -Life vest obtained. Atrial arrythmia, ,bp low did stop entresto 12/31 stopped lasix 12/30 continue carvediolol lyme test neg Pt with significant smoking history some shortness of breath could be from COPD will try inhaled medication to see if improve (2) Elevated troponin: Plan: Patient with elevated troponin of 100.2 as well as BNP of 3414. felt to be demand ischemia from systolic HF on presentation (3) Abdominal pain: Plan: Patient complaining of abdominal pain. CT without acute changes, - diverticulosis without diverticulitis, non-obstructing renal stones. eilquis therpeutic dosing for apical thrombus Code - Full per discussion with patient Admission and Anticipated Discharge Date Admission Date: December 24, 2022 Subjective continues to not have abnormal lung exam to consider Chf or COPD pt does not have symptoms associated with his low blood pressure readings, however did stop entresto remains in occasional afib/flutter, rates reasonably controlled Physical Exam Physical Exam: patient awake alert oriented x3 times card exam is regular, lungs remain clear extremities are with trace edema patient becomes dyspneic with minor exertion Results & Data Results & Data Vital Signs (Past 12 Hours) Vital Signs Temp Pulse Pulse Resp BP Pulse Ox O2 Del Method 12/30/22 11:38 97.7 F 76 20 121/77 96 Room Air 12/30/22 08:00 Room Air 12/30/22 07:54 97.2 F L 80 18 109/83 96 Room Air 12/30/22 07:35 115 H 12/30/22 04:00 97.7 F 120 H 22 96/56 L 96 Room Air Laboratory Results review cbc review lyme PG Care Time/CCT Total # of Minutes Spent Total Time Spent with Patient: Total time spent is greater than 50% in coordination of care (as documented) at patient's floor/unit and/or counseling patient: Coding Level of Care Code 23466 SUB INP/OBS CARE 2/35MIN Diagnoses Shortness of breath R06.02 Elevated troponin R77.8 Abdominal pain R10.9
[2022-12-30] MEDS ORDERED: SODIUM CHLORIDE 0.9% 500 ML IV SCH (17:30)
[2022-12-30] MEDS: LORazepam 0.5 MG TAB PO PRN (20:18)
[2022-12-30] MEDS: MELATONIN 3 MG TAB PO PRN (20:18)
[2022-12-31 05:32] LABS: BUN Creatinine Ratio 29.1 (10-20); Calcium 8.5 mg/dl (8.6-10.3); Creatinine Clr Calc Pharmacy 75.2 ml/min; Est GFR (African American) 75.4 ml/min; Potassium 4.5 mmol/L (3.5-5.1)
[2022-12-31] MEDS: APIXABAN 5 MG TABLET PO SCH ×2 (08:19→20:08)
[2022-12-31] MEDS: busPIRone 5 MG TAB PO SCH ×2 (08:19→20:08)
[2022-12-31] MEDS: PANTOprazole 40 MG TAB PO SCH ×2 (08:20→20:08)
[2022-12-31] MEDS: carvediloL 3.125 MG TAB PO SCH ×2 (08:20→17:24)
[2022-12-31] MEDS: ASPIRIN 81 MG ECTAB PO SCH (08:20)
--- NOTE | 2022-12-31 09:59 | Cardiology Progress Note ---
Date of Service December 31, 2022 Assessment & Plan (1) Atrial flutter with rapid ventricular response: Plan: Mild, asymptomatic hypotension with ventricular rate still suboptimally controlled. Add digoxin 250 micrograms x2 loading dose, then 250 mcg daily. Since carvedilol is primarily for afterload reduction and his BP is low on minimal carvedilol dosing, would prefer to discontinue carvedilol and start metoprolol succinate 25 mg twice daily for better rate control of his atrial fibrillation. (2) HFrEF (heart failure with reduced ejection fraction): Plan: Given mild hypotension and increasing creatinine, since he appears euvolemic on exam would hold furosemide today and reevaluate diuretic need tomorrow. (3) Cardiomyopathy: Plan: As above. (4) LV (left ventricular) mural thrombus: Plan: On apixaban, no bleeding issues. Not clear he needs to remain on aspirin, given that his coronary disease is mild and could reasonably be treated with monotherapy (apixaban) rather than dual therapy (apixaban plus aspirin). However, his bleeding risk is fairly low given the absence of hypertension, renal insufficiency, or advanced age. Admission and Anticipated Discharge Date Admission Date: December 24, 2022 Subjective No complaints. Denies chest pain, dyspnea at rest, subjective palpitations, or lightheadedness. Telemetry showed atrial fibrillation with ventricular rate 90-110 bpm. Physical Exam Physical Exam: No distress. BP mildly hypotensive. Pulse 110 bpm and irregular. Skin: no ecchymoses or generalized lesions. HEENT: unremarkable. Neck: JVP at the clavicle at 90 degrees, no carotid bruits. Lungs: Mildly diminished breath sounds but clear. Cardiac: Irregular/tachycardic rhythm, normal S1-2, no obvious murmur. Abdomen: benign. Extremities: no edema, pulses intact. Neurologic: normal affect and conversation, nonfocal. Results & Data Vital Signs (Past 12 Hours) Vital Signs Temp Pulse Pulse Resp BP Pulse Ox O2 Del Method 12/31/22 09:45 115 H 12/31/22 07:52 97.3 F L 51 L 20 85/42 L 98 Room Air 12/31/22 06:03 117 H 12/31/22 03:00 98.2 F 86 23 91/59 L 96 Room Air 12/31/22 02:23 114 H 12/30/22 23:00 98.2 F 84 19 108/69 97 Room Air Laboratory Results Normal electrolytes, BUN 34, creatinine 1.17. PG Care Time/CCT Total # of Minutes Spent Total Time Spent with Patient: Total time spent is greater than 50% in coordination of care (as documented) at patient's floor/unit and/or counseling patient: Coding Level of Care Code 23616 SUB INP/OBS CARE 3/50MIN Diagnoses Atrial flutter with rapid ventricular response I48.92 HFrEF (heart failure with reduced ejection fraction) I50.20 Cardiomyopathy I42.9 LV (left ventricular) mural thrombus I51.3
--- NOTE | 2022-12-31 13:22 | Hospitalist Progress Note ---
Date of Service December 31, 2022 Assessment & Plan (1) Shortness of breath: Plan: Nonischemic acute cardiomyopathy with systolic dysfunction, HFrEF history of the same, EF 15-20%, Echo now shows large apical LV thrombus therapeutic anticoagulation started Cardiac cath with non occlusive disease -Cardiology consultation appreciated, -Life vest obtained. Atrial arrythmia, ,bp low did stop entresto 12/31 stopped lasix 12/30 continue carvediolol lyme test neg Pt with significant smoking history some shortness of breath could be from COPD will try inhaled medication to see if improve (2) Elevated troponin: Plan: Patient with elevated troponin of 100.2 as well as BNP of 3414. felt to be demand ischemia from systolic HF on presentation (3) Abdominal pain: Plan: Patient complaining of abdominal pain. CT without acute changes, - diverticulosis without diverticulitis, non-obstructing renal stones. eilquis therpeutic dosing for apical thrombus Code - Full per discussion with patient Admission and Anticipated Discharge Date Admission Date: December 24, 2022 Subjective continues to not have abnormal lung exam to consider Chf or COPD pt does not have symptoms associated with his low blood pressure readings, however did stop entresto remains in occasional afib/flutter, rates reasonably controlled Physical Exam Physical Exam: patient awake alert oriented x3 times card exam is regular, lungs remain clear extremities are with trace edema patient becomes dyspneic with minor exertion Results & Data Results & Data Vital Signs (Past 12 Hours) Vital Signs Temp Pulse Pulse Resp BP Pulse Ox O2 Del Method 12/31/22 12:08 98.2 F 120 H 18 89/55 L 96 Room Air 12/31/22 09:45 115 H 12/31/22 07:52 97.3 F L 51 L 20 85/42 L 98 Room Air 12/31/22 06:03 117 H 12/31/22 03:00 98.2 F 86 23 91/59 L 96 Room Air 12/31/22 02:23 114 H PG Care Time/CCT Total # of Minutes Spent Total Time Spent with Patient: Total time spent is greater than 50% in coordination of care (as documented) at patient's floor/unit and/or counseling patient: Coding Level of Care Code 82075 SUB INP/OBS CARE 2/35MIN Diagnoses Shortness of breath R06.02 Elevated troponin R77.8 Abdominal pain R10.9
[2022-12-31] MEDS: LORazepam 0.5 MG TAB PO PRN (20:08)
[2022-12-31] MEDS: MELATONIN 3 MG TAB PO PRN (20:08)
[2023-01-01 06:27] LABS: BUN Creatinine Ratio 23.1 (10-20); Calcium 8.4 mg/dl (8.6-10.3); Creatinine Clr Calc Pharmacy 81.5 ml/min; Est GFR (Non-African American) 71.6 ml/min; Potassium 4.3 mmol/L (3.5-5.1)
[2023-01-01] MEDS: APIXABAN 5 MG TABLET PO SCH (08:33)
[2023-01-01] MEDS: PANTOprazole 40 MG TAB PO SCH (08:33)
[2023-01-01] MEDS: busPIRone 5 MG TAB PO SCH (08:33)
[2023-01-01] MEDS: ASPIRIN 81 MG ECTAB PO SCH (08:33)
[2023-01-01] MEDS: carvediloL 3.125 MG TAB PO SCH (08:34)
--- NOTE | 2023-01-01 13:01 | Cardiology Progress Note ---
Date of Service January 01, 2023 Assessment & Plan (1) Atrial flutter with rapid ventricular response: Plan: Converted to sinus yesterday. No need to initiate digoxin (had considered adding this for rate control), but would discontinue carvedilol and start metoprolol succinate 25 mg twice daily to decrease risk of recurrent atrial flutter and to control rate if tachydysrhythmia does recur. Given his borderline hypotension, doubt that he would tolerate both carvedilol and metoprolol, thus would favor metoprolol for reasons noted. (2) HFrEF (heart failure with reduced ejection fraction): Plan: Could discharge on sliding scale diuretic regimen, none initially but start furosemide 40 mg p.o. for weight gain of greater than 2 pounds overnight or 5 pounds in 1 week. Cardiology follow-up with Dianne Hernandez PA-C in heart failure clinic. (3) Cardiomyopathy: Plan: Well compensated. Will need evaluation for ICD, currently with LifeVest. (4) LV (left ventricular) mural thrombus: Plan: On higher dose apixaban, long-term anticoagulation will be usual dose apixaban (5 mg twice daily). As noted, could consider this as monotherapy for minimal CAD/atrial dysrhythmias, however he is fairly low risk for bleeding and could be on dual therapy as well. Plan Patient is doing well. Potentially could be discharged home. Admission and Anticipated Discharge Date Admission Date: December 24, 2022 Subjective No complaints. No dyspnea, chest pain, palpitations, or lightheadedness. Telemetry shows conversion from atrial fibrillation to sinus rhythm yesterday afternoon, rate currently 80 bpm. Physical Exam Physical Exam: No distress. BP mildly hypotensive. Pulse 85 bpm and regular. Skin: no ecchymoses or generalized lesions. HEENT: unremarkable. Neck: JVP at the clavicle at 90 degrees, no carotid bruits. Lungs: Mildly diminished breath sounds but clear. Cardiac: regular rhythm, normal S1-2, no obvious murmur. Abdomen: benign. Extremities: no edema, pulses intact. Neurologic: normal affect and conversation, nonfocal. Results & Data Vital Signs (Past 12 Hours) Vital Signs Temp Pulse Pulse Resp BP Pulse Ox O2 Del Method 01/01/23 11:28 98.4 F 95 H 20 93/62 L 96 Room Air 07/24/23 07:55 98.4 F 95 H 21 102/69 95 Room Air 01/01/23 03:00 97.7 F 101 H 19 93/52 L 98 Room Air 01/01/23 03:26 106 H Laboratory Results Normal electrolytes, BUN 25, creatinine 1.08 (1.17 yesterday). PG Care Time/CCT Total # of Minutes Spent Total Time Spent with Patient: Total time spent is greater than 50% in coordination of care (as documented) at patient's floor/unit and/or counseling patient: Coding Level of Care Code 87009 SUB INP/OBS CARE 3/50MIN Diagnoses Atrial flutter with rapid ventricular response I48.92 HFrEF (heart failure with reduced ejection fraction) I50.20 Cardiomyopathy I42.9 LV (left ventricular) mural thrombus I51.3
--- NOTE | 2023-01-01 15:36 | Discharge Summary ---
Date of Service January 01, 2023 Admission HPI Per Admitting Provider Ivan Maria is a 67yo male with no reported medical history or daily medications - does not follow routinely with a doctor. He does not clearly provide history - history obtained through discussion with patient and ER staff. Patient reports ongoing abdominal discomfort and shortness of breath since April. He was seen at [place] in the past for this same complaint. Per his description, it sounds as if he was placed on NIPPV (he reports wearing a full face mask and having air pressure blown at him). He was sent to [facility] and sounds that he had a cardiac catheterization with possible thrombectomy. Patient reports that "they took out all the clots". He does not report having stents. He does not report following with a [facility] or a Primary Care physician. Today patient developed severe mid abdominal pain with nausea and worsening shortness of breath. He reports his shortness of breath has been progressing for the last month. He denies chest pain, palpitations, cough, dizziness, syncope. He denies vomiting, diarrhea or constipation. He denies urinary complaints. Denies edema, orthopnea or weight gain. In the ER he is afebrile, tachycardic, blood pressure stable. He did have a 6 beat run of monomorphic ventricular tachycardia which was asymptomatic. ER Course: Ativan 0.5mg Tylenol 1gm IV Lasix 40mg IV ASA 324mg Principal Diagnosis non ischemic cardiomyopathy LV thrombus atrial fibrillation anxiety Discharge Exam pt is stable laying flat is not short of breath no lower extremity edema Discharge Data Allergies Allergy/AdvReac Type Severity Reaction Status Date / Time No Known Allergies Allergy Unverified 12/24/22 19:45 Consultations 12/24/22 20:25 ED Decision to Admit Stat 12/25/22 02:03 Consult Cardiology Routine 12/27/22 23:13 Consult Gastroenterology Routine Procedures Performed Operation Date: 12/26/22 09:00 Actual Procedures s Cineradiography w/Routine Exam - Yared Chavez MD, PhD p Cath, Coronaries ONLY (no LV) - Yared Chavez MD, PhD Ordered Studies 12/24/22 20:37 CT Abd and Pelvis [CT abd pelvis wo con] Urgent 12/26/22 12:44 CL Cath Imgs for PACS use only Routine Hospital Course (1) Shortness of breath: Nonischemic acute cardiomyopathy with systolic dysfunction, HFrEF history of the same, EF 15-20%, Echo now shows large apical LV thrombus therapeutic anticoagulation started Cardiac cath with non occlusive disease -Cardiology consultation appreciated, -Life vest obtained. Atrial arrythmia, ,bp low did stop entresto 12/31 stopped lasix 12/30 continue carvedilol bp and heart rate evaluated continues on eliquis lyme test neg Pt with significant smoking history some shortness of breath could be from COPD (2) Elevated troponin: Patient with elevated troponin of 100.2 as well as BNP of 3414. felt to be demand ischemia from systolic HF on presentation (3) Abdominal pain: Patient complaining of abdominal pain. CT without acute changes, - diverticulosis without diverticulitis, non-obstructing renal stones. eilquis therpeutic dosing for apical thrombus Code - Full per discussion with patient Total Time Total Time Spent Total Time Spent (In Minutes): it required greater than 30 minutes to prepare this patient for discharge Discharge Plan Discharge Items Patient Disposition: Transfer Inpatient Rehab Fac Reason For Visit: ABDOMINAL PAIN Discharge Diagnosis: nonischemic cardiomyopathy atrial fibrillation flutter ventricular tachycardia with chest vest Activity: Per Instructions section Non-emergency contact: Primary Care Provider Call non-emergency contact if: your symptoms worsen Follow-up/Referrals: PCP,NO [Primary Care Provider] - Diet: Heart Healthy Addtl Attending Provider Instructions: Call 911 and go to the Emergency Room if: * You have tightness or pain in your chest that does not go away with rest or Nitroglycerin * You are very short of breath even with rest Call your doctor if any of the following symptoms or problems start or get worse: * Shortness of breath or difficulty breathing * Wake up at night short of breath * Chest pain * Cough * Swelling of your hands, fee, or legs * More fatigued or tired with your normal activity * Palpitations - sudden fast heart beats WEIGHT * Weigh yourself every morning after using the bathroom. * Use the same scale. * Wear the same amount of clothing. * Write your weight down on your chart. * Call your doctor if you gain more than 2-3 pounds in 1-2 days. MEDICATIONS * Use this discharge instruction sheet for instructions. * Take your medications at the time your doctor ordered. * Do not skip a dose of your medicines. * If you miss a dose of medicine, take as soon as possible, but DO NOT DOUBLE A DOSE. * Read your medicine information when you get home. * Know all of the side effects of your medicine. * Call your doctor's office if you have any side effects. * Be sure all of your doctors know what medicine and herbs you take (including cold, flu, and herbal medicine). * Pain Medicine: If you do not get relief from your pain, please call your doctor for help. Take the following with you to your follow-up doctor appointments: * Weight Chart * Medication List * List of questions Do not drink excessive alcohol, beer or wine. Addtl Pipe Washer Provider Instructions: patient should be on Eliquis 10 twice daily until the then he could be on 5 twice daily at that point time patient is no longer on Lasix therapy is tolerating carvedilol dose can be increased if blood pressure tolerates patient is continue to wear chest vest and follow-up with [facility] cardiology or cardiology of his choice in his local area Pending Studies at Discharge: No Stand-Alone Forms: My [facility] Skilled Items Patient informed of condition?: Yes DNR: No Discharge Level of Care: Acute rehab Communicable Disease: No Discharge Prognosis: Stable Lines: None Urinary Catheter: No Medications and DC Order Prescriptions: New Eliquis 5 mg tablet 5 mg PO BID Qty: 60 0RF Rx Instructions: Take 2 tablets twice a day for 7 days then decrease to 1 tablet twice a day. buspirone 5 mg Tablet 5 mg PO BID Qty: 60 0RF aspirin 81 mg Tablet,Delayed Release (Dr/Ec) 81 mg PO DAILY Qty: 30 0RF carvedilol 3.125 mg Tablet 3.125 mg PO BIDM Qty: 60 0RF pantoprazole 40 mg Tablet,Delayed Release (Dr/Ec) 40 mg PO DAILY Qty: 30 0RF Discharge Orders: Discharge Order (Routine); Ordered 01/01/23 Ordered By: Phil Andrade Admission Data Admit Date/Time: 12/24/22 20:46 Attending Provider: Phil Andrade Admit Provider: Serene Sanford Primary Care Provider: PCP,NO Other Providers: Serene Sanford ; Cameron Colmenares ; Esvin Villarreal ; Aries Asencio ; Wendy Goff ; Marge Brock ; Kayla Cope ; Alisa Kapadia ; Humza Anders ; Geo Cast ; Jennifer Justice ; Tressa Colbert ; Mike Moon ; Karin Sapp ; Samantha Law ; Lynda Mariscal ; Rose Marie Elizabeth ; Sylvie Kramer ; Flakito Sousa ; Elmer Pisano ; Dayana Ly ; Gabby Mills Jr Other Interventions: Discharge Summary Assessment (RN) Last Done: 01/01/23 14:12 Coding Level of Care Code 53797 INP/OBS DISCH >30 MIN Diagnoses Shortness of breath R06.02 Elevated troponin R77.8 Abdominal pain R10.9
== END 2023-01-01 14:32 | DRG 286 ==
LOC: ED 18:52 → SUATTDRO 20:46 → 4W 20:46
PROC: CLB.CCO (2022-12-26 09:00)